=== PATIENT | female | born 1945 | race Caucasian/White ===

== ENCOUNTER 2019-07-01 08:35 | Inpatient (IN) | payer OTHER, SELFPAY ==
[2019-07-01] VITALS (39 sets, daily range): BP systolic 78–131; BP diastolic 27–80; PULSE 78–104; RESP 18–28; TEMP 35.2–35.8; O2SAT 88–100; BMI 32.8
[2019-07-01] MEDS: DEXTROSE 50 % IN WATER 25 GM/50 ML SYRINGE (08:55)
--- NOTE | 2019-07-01 09:04 | ED_ITS ---
HPI - General Adult General Chief complaint: Unresponsive Stated complaint: Weakness, hypoglycemia Time Seen by Provider: 07/01/19 09:04 Source: EMS Mode of arrival: EMS Limitations: altered mental status History of Present Illness HPI narrative: Patient comes emergency department via EMS raise for unresponsiveness this morning. Patient according to has been less and less active over the last 2 weeks. She has not been eating or drinking, and has not been getting out of bed. According to the medics, has been states that the patient has ?no medical problems.She has not been known to be ill with anything over the last couple weeks. No fevers. No cough. No vomiting or diarrhea. This morning, EMS was called for a ?lift assist? after the has been found the patient on the floor this morning. When they arrived, patient's blood sugar was found to be 46. Patient was not able to offer any information. Attempts to get an IV EN route were unsuccessful, and patient was given glucagon, which did not seem to make any difference in her mental status. She was also found to be hypotensive at 90/50. Related Data Home Medications Medication Instructions Recorded Confirmed Unobtainable 07/01/19 07/01/19 Allergies Allergy/AdvReac Type Severity Reaction Status Date / Time atorvastatin AdvReac Unknown Muscle Pain Verified 07/01/19 09:25 simvastatin AdvReac Unknown Muscle Verified 07/01/19 09:25 Pain, Nightmares Review of Systems Review of Systems ROS Unobtainable: Unobtainable due to mental condition [facility] Medical History (Updated 07/01/19 @ 16:27 by Saurav Campbell MD) Healthy adult (Acute) Presence of arterial stent (Acute) Surgical History No pertinent past surgical history (Acute) Family History (Updated 07/01/19 @ 15:51 by Delaney Antonio MD) Mother Dementia Social History (Updated 07/01/19 @ 16:40 by Saurav Campbell MD) Smoking Status: Current every day smoker alcohol intake: current Family History (Updated 07/01/19 @ 15:51 by Delaney Antonio MD) Mother Dementia Social History (Updated 07/01/19 @ 16:40 by Saurav Campbell MD) Smoking Status: Current every day smoker alcohol intake: current Exam Initial Vital Signs Initial Vital Signs: Vital Signs Temperature 96.0 F L 07/01/19 08:40 Pulse Rate 80 07/01/19 08:40 Respiratory Rate 28 H 07/01/19 08:40 Blood Pressure 84/43 L 07/01/19 08:40 Pulse Oximetry 99 07/01/19 08:40 Const General: No healthy appearing Nutritional Appearance: thin Other: Patient appears chronically ill and in baseline poor health. [facility] Head: normocephalic and atraumatic Ears: external ears normal and TM's normal bilaterally Nose: external nose normal and No nasal discharge Face and sinus: sinuses nontender, face symmetric, no sinus tenderness and No dry mucous membranes Mouth: oral mucosae normal and moist mucous membranes Teeth and gingiva: dentition normal Throat: tonsils normal and uvula midline Eyes General: appearance normal, both eyes and all related structures Eyelids: eyelids normal Conjunctivae: conjunctivae normal and other Sclera: sclerae normal (Icteric) Pupils: PERRL Neck Neck: normal visual inspection, trachea midline, No lymphadenopathy, No midline deformity and No JVD Lymphatic: No lymphedema Chest Chest: normal inspection of the chest Resp Effort & Inspection: normal respiratory effort, able to speak in complete sentences, no respiratory distress and no use of accessory muscles Auscultation: clear to auscultation bilaterally, no rales, no rhonchi and no wheezes Cardio Rate: regular rate Rhythm: regular rhythm Heart Sounds: no click, no gallops, no murmurs and no rubs Pulses: normal peripheral pulses GI Inspection: distended Palpation: soft, no hepatosplenomegaly, No guarding, No pulsatile mass and No tender Back/Spine/Pelvis Back: No CVA tenderness Cervical Spine: cervical ROM normal and No pain with cervical ROM Thoracic/Lumbar Spine: thoracic and lumbar spine normal to inspection Skin General: no rashes or lesions noted, No jaundice and No petechiae Neuro Other: Patient is moving all 4 extremities. She is not verbally responsive, and while her eyes are open, she does not focus or follow commands. Extrem General: full ROM, no clubbing, cyanosis or edema, no pedal edema and no calf tenderness Psych Appearance: well kempt Mental Status: mental status grossly normal Attitude: cooperative Thought Content: normal and suicidality Judgment: judgment good Procedures Central Line Placement Right SC: Patient Placed on Monitor/Pulse Ox: Yes MD Prep: mask, gown and gloves Central Line Prep: Chlorhexidine scrub and sterile drapes applied Local Anesthetic: lidocaine 1% Amount of anesthesia used (mL): 5 Ultrasound Used for Placement: No Central Line Lumen Inserted: triple Post Procedure: sutured in place, good blood return, all ports aspirated, flushed, capped and sterile dressing applied Post Procedure X-Ray: tip of catheter in good position and no pneumothorax seen Patient Tolerated Procedure: Well Course Course Course Narrative: Patient was seen by myself immediately upon arrival in the emergency department. She had extremely poor peripheral vasculature, so I did place a right triple-lumen central venous catheter. Simultaneously, PICC nurse was able to get a PICC line on the left side. Patient was given D50 1 amp IV, which did not change her mental status. A 2nd amp also failed to change the patient's mental status. This patient was started on IV fluid boluses with normal saline, and received several L while in the emergency department. Her labs were found to be widely deranged including an ammonia level of 238, white blood cell count 22.6, H/H 4.0/14.2, potassium 6.3, BUN 44, creatinine to 50, lactic acid level 22.4, and ABG showing pH 6.91. Patient was found to have gross blood per rectum, without passage of large amounts of blood or clots. Head CT and chest x-ray were unremarkable. Urinalysis was obtained and pending at this time. The patient was given 2 units of packed red blood cells, which were started in the emergency department. I spoke with Dr. Antonio after some delay, secondary to critical admitted patients, and she requested that surgery be on board to care for the patient if the patient was admitted here. After some further delay due to operating room cases, I was able to speak with Dr. Campbell, who conferred with Dr. Antonio. Ultimately, it was decided that the patient would be admitted to the hospital here on Dr. Antonio's service with cons ultation by Dr. Campbell. Family was informed of the grave condition of the patient was in. Her significant other had arrived sometime earlier, and I had discussed with him whether the patient had an advanced directive or any known wishes. The significant other stated she did not that he was aware of. Orders Ordered: Folic Acid (Folic Acid) 1 mg PO DAILY EKTA Ceftriaxone Sodium/Dextrose (Rocephin) 2 gm in 50 mls @ 100 mls/hr IV Q24H EKTA Last Admin: 07/01/19 17:10 Dose: 100 mls/hr Documented by: DEIDRE Sodium Bicarbonate 300 meq/ (Dextrose) 1,300 mls @ 150 mls/hr IV CONT EKTA Last Admin: 07/01/19 16:47 Dose: 250 mls/hr Documented by: DEIDRE Lactulose (Enulose) 20 gm LA NOW ONE Stop: 07/02/19 00:02 Lorazepam (Ativan) 0 mg IV CIWAPRN PRN; Protocol PRN Reason: Alcohol Withdrawal Morphine Sulfate (Morphine) 2 mg IV Q4HR PRN PRN Reason: Pain, Mild (1-3) Multivitamins (Tab-A-Amol) 1 tab PO DAILY [facility] Naloxone HCl (Narcan) 0.2 mg IV Q2MIN PRN PRN Reason: Opiate Reversal Nicotine (Nicoderm) 21 mg TOP DAILY [facility] Ondansetron HCl (Zofran) 4 mg IV Q6HR PRN PRN Reason: Nausea And Vomiting Pantoprazole Sodium (Protonix) 40 mg IV BID [facility] Thiamine HCl (Vitamin B-1) 100 mg PO DAILY EKTA Stop: 07/05/19 09:01 Discontinued Medications Dextrose (D50w) 25 gm IV NOW ONE Stop: 07/01/19 09:14 Last Admin: 07/01/19 09:35 Dose: 25 gm Documented by: RENEE Dextrose (D50w) 25 gm IV NOW ONE Stop: 07/01/19 16:26 Last Admin: 07/01/19 16:46 Dose: 25 gm Documented by: DEIDRE Sodium Chloride (Normal Saline 0.9%) 1,000 mls @ 1,000 mls/hr IV BOLUS ONE Stop: 07/01/19 10:12 Last Infusion: 07/01/19 10:31 Dose: 0 mls/hr Documented by: Admin: 07/01/19 09:26 Dose: 1,000 mls/hr Documented by: RENEE Sodium Chloride (Normal Saline 0.9%) 1,000 mls @ 1,000 mls/hr IV BOLUS ONE Stop: 07/01/19 09:59 Last Infusion: 07/01/19 10:30 Dose: 0 mls/hr Documented by: Admin: 07/01/19 10:16 Dose: 1,000 mls/hr Documented by: RENEE Sodium Chloride (Normal Saline 0.9%) 1,000 mls @ 1,000 mls/hr IV BOLUS ONE Stop: 07/01/19 12:04 Last Infusion: 07/01/19 13:45 Dose: 0 mls/hr Documented by: Admin: 07/01/19 11:40 Dose: 1,000 mls/hr Documented by: RENEE Calcium Gluconate 9.3 meq/ (Sodium Chloride) 70 mls @ 140 mls/hr IV NOW ONE Stop: 07/01/19 16:26 Last Admin: 07/01/19 16:46 Dose: 140 mls/hr Documented by: DEIDRE Insulin Human Regular (Humulin R) 10 unit SUBCUT NOW ONE Stop: 07/01/19 16:46 Last Admin: 07/01/19 16:47 Dose: 10 unit Documented by: DEIDRE Cosigned by: LEIGH Lactulose (Enulose) 20 gm LA NOW ONE Stop: 07/01/19 16:30 Last Admin: 07/01/19 17:01 Dose: 20 gm Documented by: DEIDRE Vital Signs Vital signs: Vital Signs - 8 hr 07/01/19 13:10 07/01/19 13:14 07/01/19 13:21 Temperature 96.2 F L 96.2 F L Pulse Rate 84 83 81 Respiratory Rate 20 20 22 Blood Pressure 116/29 L Blood Pressure [Right Arm] 122/80 111/43 L Pulse Oximetry 97 97 07/01/19 13:25 Temperature Pulse Rate 84 Respiratory Rate 21 Blood Pressure Blood Pressure [Right Arm] 106/46 L Pulse Oximetry 99 Medical Decision Making Medical Records Medical records reviewed: Yes I reviewed the patient's medical records. Lab Data Lab results reviewed: Yes I reviewed the patient's lab results. Result diagrams: 07/01/19 15:40 07/01/19 15:40 Labs: Lab Results 07/01/19 07/01/19 07/01/19 Range/Units 09:00 09:00 09:00 WBC 20.8 H (4.5-11.0) X10^3/uL RBC 1.15 L (4.0-5.2) X10^6/uL Hgb 4.0 L* (12.0-16.0) g/dL Hct 14.2 L* (36-46) % MCV 123.6 H (80-100) fL MCH 34.5 H (26-34) PG MCHC 27.9 L (30-36) % RDW 20.0 H (11.6-14.8) % Plt Count 290 (150-400) X10^3/uL Neut % (Auto) Not Reportable Lymph % (Auto) Not Reportable [place] % (Auto) Not Reportable Eos % (Auto) Not Reportable Baso % (Auto) Not Reportable Lymph # (Auto) Not Reportable [place] # (Auto) Not Reportable Baso # (Auto) Not Reportable Total Counted 100 Seg Neutrophils % 66.0 (38-70) % Band Neutrophils % 6.0 (3-7) % Lymphocytes % (Manual) 18.0 L (25-45) % Atypical Lymphs % 1.0 H ( - 0) % Monocytes % (Manual) 5.0 (2-11) % Metamyelocytes % 2.0 H (-0) % Myelocytes % 2.0 H (-0) % Neutrophils # (Manual) 23122 H (6608-2975) /uL Platelet Estimate Adequate on smear RBC Morphology See below Polychromasia 2+ H Anisocytosis 2+ H Macrocytosis 3+ H Tear Drop Cells 1+ H Ovalocytes 1+ H Hernandez Cells 3+ H PT 28.6 H (10.1-12.7) SECONDS INR 2.4 H (0.9-1.3) ABG pH (7.35-7.45) ABG pCO2 (35-45) mmHg ABG pO2 (80-100) mmHg ABG HCO3 (22-26) mmol/L ABG Total CO2 (21-31) mmol/L ABG O2 Saturation (95-100) % ABG Base Excess (-2-2) mmol/L FiO2 Sodium 143 (137-145) mmol/L Potassium 5.8 H (3.4-5.1) mmol/L Chloride 107 (98-107) mmol/L Carbon Dioxide 7 L* (22-32) mmol/L BUN 46 H (7-17) mg/dL Creatinine 2.80 H (0.52-1.04) mg/dL Estimated GFR 16.6 L (>60) mL/min BUN/Creatinine Ratio 16.4 (6-22) Glucose 35 L* (80-110) mg/dL Lactate (0.7-2.1) mmol/L Calcium 8.8 (8.4-10.2) mg/dL Total Bilirubin 2.9 H (0.2-1.3) mg/dL AST 173 H (14-36) IU/L ALT 35 (9-52) IU/L Alkaline Phosphatase 41 (38-126) U/L Ammonia (9-30) umol/L Total Creatine Kinase 333 H (30-135) U/L CK-MB (CK-2) 5.98 H (<2.37) ng/mL CK-MB (CK-2) Rel Index 1.8 (1.5-5.0) % Troponin I 0.017 (0.01-0.034) ng/mL Total Protein 5.4 L (6.3-8.2) g/dL Albumin 2.4 L (3.5-5.0) g/dL Globulin 3.0 (1.7-4.1) g/dL Albumin/Globulin Ratio 0.8 L (1.0-2.8) Lipase 92 (23-300) U/L Urine Color Urine Appearance Urine pH (4.5-8.0) Ur Specific [place] (1.000-1.035) Urine Protein (Negative) Urine Glucose (UA) (Negative) g/dL Urine Ketones (NEGATIVE) Urine Occult Blood (Negative) Urine Nitrate (Negative) Urine Bilirubin (NEGATIVE) Urine Urobilinogen (0.2) E.U./dL Ur Leukocyte Esterase (NEGATIVE) Urine RBC (0-5/HPF) Urine WBC (0-5/HPF) Ur Squamous Epith Cells (0-5/HPF) Urine Bacteria (None) Ur Culture Indicated? Urine Opiates Screen (Negative) Ur Oxycodone Screen (Negative) Urine Methadone Screen (Negative) Ur Barbiturates Screen (Negative) U Tricyclic Antidepress (Negative) Ur Phencyclidine Scrn (Negative) Ur Amphetamines Screen (Negative) U Methamphetamines Scrn (Negative) Ur MDMA Scrn (Ecstasy) (Negative) U Benzodiazepines Scrn (Negative) Urine Cocaine Screen (Negative) U Marijuana (THC) Screen (Negative) Ethyl Alcohol ( - 10) mg/dL Blood Type Antibody Screen Crossmatch 07/01/19 07/01/19 07/01/19 Range/Units 09:00 09:00 09:00 WBC (4.5-11.0) X10^3/uL RBC (4.0-5.2) X10^6/uL Hgb (12.0-16.0) g/dL Hct (36-46) % MCV (80-100) fL MCH (26-34) PG MCHC (30-36) % RDW (11.6-14.8) % Plt Count (150-400) X10^3/uL Neut % (Auto) Lymph % (Auto) [place] % (Auto) Eos % (Auto) Baso % (Auto) Lymph # (Auto) [place] # (Auto) Baso # (Auto) Total Counted Seg Neutrophils % (38-70) % Band Neutrophils % (3-7) % Lymphocytes % (Manual) (25-45) % Atypical Lymphs % ( - 0) % Monocytes % (Manual) (2-11) % Metamyelocytes % (-0) % Myelocytes % (-0) % Neutrophils # (Manual) (7603-3548) /uL Platelet Estimate RBC Morphology Polychromasia Anisocytosis Macrocytosis Tear Drop Cells Ovalocytes Hernandez Cells PT (10.1-12.7) SECONDS INR (0.9-1.3) ABG pH (7.35-7.45) ABG pCO2 (35-45) mmHg ABG pO2 (80-100) mmHg ABG HCO3 (22-26) mmol/L ABG Total CO2 (21-31) mmol/L ABG O2 Saturation (95-100) % ABG Base Excess (-2-2) mmol/L FiO2 Sodium (137-145) mmol/L Potassium (3.4-5.1) mmol/L Chloride (98-107) mmol/L Carbon Dioxide (22-32) mmol/L BUN (7-17) mg/dL Creatinine (0.52-1.04) mg/dL Estimated GFR (>60) mL/min BUN/Creatinine Ratio (6-22) Glucose (80-110) mg/dL Lactate 22.4 H* (0.7-2.1) mmol/L Calcium (8.4-10.2) mg/dL Total Bilirubin (0.2-1.3) mg/dL AST (14-36) IU/L ALT (9-52) IU/L Alkaline Phosphatase (38-126) U/L Ammonia 238.0 H (9-30) umol/L Total Creatine Kinase (30-135) U/L CK-MB (CK-2) (<2.37) ng/mL CK-MB (CK-2) Rel Index (1.5-5.0) % Troponin I (0.01-0.034) ng/mL Total Protein (6.3-8.2) g/dL Albumin (3.5-5.0) g/dL Globulin (1.7-4.1) g/dL Albumin/Globulin Ratio (1.0-2.8) Lipase (23-300) U/L Urine Color Urine Appearance Urine pH (4.5-8.0) Ur Specific [place] (1.000-1.035) Urine Protein (Negative) Urine Glucose (UA) (Negative) g/dL Urine Ketones (NEGATIVE) Urine Occult Blood (Negative) Urine Nitrate (Negative) Urine Bilirubin (NEGATIVE) Urine Urobilinogen (0.2) E.U./dL Ur Leukocyte Esterase (NEGATIVE) Urine RBC (0-5/HPF) Urine WBC (0-5/HPF) Ur Squamous Epith Cells (0-5/HPF) Urine Bacteria (None) Ur Culture Indicated? Urine Opiates Screen (Negative) Ur Oxycodone Screen (Negative) Urine Methadone Screen (Negative) Ur Barbiturates Screen (Negative) U Tricyclic Antidepress (Negative) Ur Phencyclidine Scrn (Negative) Ur Amphetamines Screen (Negative) U Methamphetamines Scrn (Negative) Ur MDMA Scrn (Ecstasy) (Negative) U Benzodiazepines Scrn (Negative) Urine Cocaine Screen (Negative) U Marijuana (THC) Screen (Negative) Ethyl Alcohol ( - 10) mg/dL Blood Type A Positive Antibody Screen Negative Crossmatch See Detail 07/01/19 07/01/19 07/01/19 Range/Units 09:00 09:10 09:10 WBC (4.5-11.0) X10^3/uL RBC (4.0-5.2) X10^6/uL Hgb (12.0-16.0) g/dL Hct (36-46) % MCV (80-100) fL MCH (26-34) PG MCHC (30-36) % RDW (11.6-14.8) % Plt Count (150-400) X10^3/uL Neut % (Auto) Lymph % (Auto) [place] % (Auto) Eos % (Auto) Baso % (Auto) Lymph # (Auto) [place] # (Auto) Baso # (Auto) Total Counted Seg Neutrophils % (38-70) % Band Neutrophils % (3-7) % Lymphocytes % (Manual) (25-45) % Atypical Lymphs % ( - 0) % Monocytes % (Manual) (2-11) % Metamyelocytes % (-0) % Myelocytes % (-0) % Neutrophils # (Manual) (0528-3881) /uL Platelet Estimate RBC Morphology Polychromasia Anisocytosis Macrocytosis Tear Drop Cells Ovalocytes Perry Cells PT (10.1-12.7) SECONDS INR (0.9-1.3) ABG pH (7.35-7.45) ABG pCO2 (35-45) mmHg ABG pO2 (80-100) mmHg ABG HCO3 (22-26) mmol/L ABG Total CO2 (21-31) mmol/L ABG O2 Saturation (95-100) % ABG Base Excess (-2-2) mmol/L FiO2 Sodium (137-145) mmol/L Potassium (3.4-5.1) mmol/L Chloride (98-107) mmol/L Carbon Dioxide (22-32) mmol/L BUN (7-17) mg/dL Creatinine (0.52-1.04) mg/dL Estimated GFR (>60) mL/min BUN/Creatinine Ratio (6-22) Glucose (80-110) mg/dL Lactate (0.7-2.1) mmol/L Calcium (8.4-10.2) mg/dL Total Bilirubin (0.2-1.3) mg/dL AST (14-36) IU/L ALT (9-52) IU/L Alkaline Phosphatase (38-126) U/L Ammonia (9-30) umol/L Total Creatine Kinase (30-135) U/L CK-MB (CK-2) (<2.37) ng/mL CK-MB (CK-2) Rel Index (1.5-5.0) % Troponin I (0.01-0.034) ng/mL Total Protein (6.3-8.2) g/dL Albumin (3.5-5.0) g/dL Globulin (1.7-4.1) g/dL Albumin/Globulin Ratio (1.0-2.8) Lipase (23-300) U/L Urine Color Dark yellow Urine Appearance Cloudy Urine pH 5.0 (4.5-8.0) Ur Specific [place] 1.020 (1.000-1.035) Urine Protein Negative (Negative) Urine Glucose (UA) Negative (Negative) g/dL Urine Ketones Negative (NEGATIVE) Urine Occult Blood 3+ H (Negative) Urine Nitrate Negative (Negative) Urine Bilirubin Negative (NEGATIVE) Urine Urobilinogen 0.2 (0.2) E.U./dL Ur Leukocyte Esterase 1+ H (NEGATIVE) Urine RBC 5-10/hpf H (0-5/HPF) Urine WBC 5-10/hpf H (0-5/HPF) Ur Squamous Epith Cells 0-1 /hpf (0-5/HPF) Urine Bacteria Moderate (10-30) H (None) Ur Culture Indicated? Specimen cultured Urine Opiates Screen Negative (Negative) Ur Oxycodone Screen Negative (Negative) Urine Methadone Screen Negative (Negative) Ur Barbiturates Screen Negative (Negative) U Tricyclic Antidepress Negative (Negative) Ur Phencyclidine Scrn Negative (Negative) Ur Amphetamines Screen Negative (Negative) U Methamphetamines Scrn Negative (Negative) Ur MDMA Scrn (Ecstasy) Negative (Negative) U Benzodiazepines Scrn Negative (Negative) Urine Cocaine Screen Negative (Negative) U Marijuana (THC) Screen Negative (Negative) Ethyl Alcohol < 10 ( - 10) mg/dL Blood Type Antibody Screen Crossmatch 07/01/19 07/01/19 Range/Units 10:44 11:32 WBC (4.5-11.0) X10^3/uL RBC (4.0-5.2) X10^6/uL Hgb (12.0-16.0) g/dL Hct (36-46) % MCV (80-100) fL MCH (26-34) PG MCHC (30-36) % RDW (11.6-14.8) % Plt Count (150-400) X10^3/uL Neut % (Auto) Lymph % (Auto) [place] % (Auto) Eos % (Auto) Baso % (Auto) Lymph # (Auto) [place] # (Auto) Baso # (Auto) Total Counted Seg Neutrophils % (38-70) % Band Neutrophils % (3-7) % Lymphocytes % (Manual) (25-45) % Atypical Lymphs % ( - 0) % Monocytes % (Manual) (2-11) % Metamyelocytes % (-0) % Myelocytes % (-0) % Neutrophils # (Manual) (8258-7632) /uL Platelet Estimate RBC Morphology Polychromasia Anisocytosis Macrocytosis Tear Drop Cells Ovalocytes Perry Cells PT (10.1-12.7) SECONDS INR (0.9-1.3) ABG pH 6.91 L* (7.35-7.45) ABG pCO2 19.4 L* (35-45) mmHg ABG pO2 100 (80-100) mmHg ABG HCO3 4 L (22-26) mmol/L ABG Total CO2 < 5 L (21-31) mmol/L ABG O2 Saturation 91 L (95-100) % ABG Base Excess -29.0 L (-2-2) mmol/L FiO2 0.21 Sodium (137-145) mmol/L Potassium (3.4-5.1) mmol/L Chloride (98-107) mmol/L Carbon Dioxide (22-32) mmol/L BUN (7-17) mg/dL Creatinine (0.52-1.04) mg/dL Estimated GFR (>60) mL/min BUN/Creatinine Ratio (6-22) Glucose (80-110) mg/dL Lactate 22.4 H* (0.7-2.1) mmol/L Calcium (8.4-10.2) mg/dL Total Bilirubin (0.2-1.3) mg/dL AST (14-36) IU/L ALT (9-52) IU/L Alkaline Phosphatase (38-126) U/L Ammonia (9-30) umol/L Total Creatine Kinase (30-135) U/L CK-MB (CK-2) (<2.37) ng/mL CK-MB (CK-2) Rel Index (1.5-5.0) % Troponin I (0.01-0.034) ng/mL Total Protein (6.3-8.2) g/dL Albumin (3.5-5.0) g/dL Globulin (1.7-4.1) g/dL Albumin/Globulin Ratio (1.0-2.8) Lipase (23-300) U/L Urine Color Urine Appearance Urine pH (4.5-8.0) Ur Specific [place] (1.000-1.035) Urine Protein (Negative) Urine Glucose (UA) (Negative) g/dL Urine Ketones (NEGATIVE) Urine Occult Blood (Negative) Urine Nitrate (Negative) Urine Bilirubin (NEGATIVE) Urine Urobilinogen (0.2) E.U./dL Ur Leukocyte Esterase (NEGATIVE) Urine RBC (0-5/HPF) Urine WBC (0-5/HPF) Ur Squamous Epith Cells (0-5/HPF) Urine Bacteria (None) Ur Culture Indicated? Urine Opiates Screen (Negative) Ur Oxycodone Screen (Negative) Urine Methadone Screen (Negative) Ur Barbiturates Screen (Negative) U Tricyclic Antidepress (Negative) Ur Phencyclidine Scrn (Negative) Ur Amphetamines Screen (Negative) U Methamphetamines Scrn (Negative) Ur MDMA Scrn (Ecstasy) (Negative) U Benzodiazepines Scrn (Negative) Urine Cocaine Screen (Negative) U Marijuana (THC) Screen (Negative) Ethyl Alcohol ( - 10) mg/dL Blood Type Antibody Screen Crossmatch Point of Care Testing Stool Occult Blood Positive Glucose POC 296 Point of care testing: Point of Care Testing Stool Occult Blood Positive Glucose POC [address] scan - head: Radiologist's impression: PROCEDURE: CT HEAD/BRAIN WO CON INDICATIONS: aloc TECHNIQUE: Noncontrast 4.5 mm thick angled axial sections acquired from the foramen magnum to the vertex, with coronal and sagittal reformats. For radiation dose reduction, the following was used: automated exposure control, adjustment of mA and/or kV according to patient size. COMPARISON: None. FINDINGS: Image quality: Excellent. CSF spaces: Basal cisterns are patent. No extra-axial fluid collections. The ventricles are symmetric in size and shape. Brain: No intracranial bleeds or masses. There is cerebral volume loss for age, with resultant ventricular and sulcal prominence. There are periventricular and deep white matter chronic small vessel ischemic changes. There is intracranial internal carotid artery atherosclerosis. Skull and face: Calvarium and visualized facial bones appear intact, without suspicious lesions. Sinuses: Visualized sinuses and mastoids are clear. IMPRESSION: No acute intracranial hemorrhage is seen. No significant intracranial abnormality can be seen for age. Dictated by: Ervin Velasco M.D. on 07/01/2019 at 10:37 Approved by: Ervin Velasco M.D. on 07/01/2019 at 10:38 Chest x-ray: Radiologist's impression: PROCEDURE: XR CHEST 1V INDICATIONS: central line TECHNIQUE: One view of the chest was acquired. COMPARISON: None. FINDINGS: Surgical changes and devices: A right-sided central line is seen, the tip overlying the mid to inferior aspect of the superior cava, 2.5 cm above the cavoatrial junction. Lungs and pleura: An incomplete inspiratory result is noted, causing a crowded appearance to the lung markings. On this semiupright portable chest examination, no large pneumothorax or large pleural effusions are seen. No focal infiltrates are seen. Mediastinum: Mediastinal contours appear normal. Heart size is normal. Atherosclerotic calcification of the aortic arch is noted. Bones and chest wall: Age-appropriate bony degenerative changes are seen. No suspicious bony lesions. Overlying soft tissues appear unremarkable. IMPRESSION: The tip of the right-sided central line overlies the mid to inferior aspect of the superior vena cava. Limited evaluation of the lungs, with semiupright positioning and an incomplete inspiratory result. Dictated by: Ervin Velasco M.D. on 07/01/2019 at 10:01 Approved by: Ervin Velasco M.D. on 07/01/2019 at 10:02 ECG Data Attestation: I personally reviewed and interpreted this ECG as follows: (See below) Interpretation: Twelve lead EKG performed July 01, 2019 at 9:33 a.m., as follows: Regular ventricular rhythm with a rate of 85 beats per minute LA interval to O2 millisecond QRS duration 163 milliseconds QTC interval 438 millisecond No ectopy Interpretation: Normal sinus rhythm; right bundle-branch block; ST depression; abnormal EKG as interpreted by ED MD. Critical Care Time Critical Care Time Critical Care Time: Yes Total Critical Care Time: 100 Attestation: Critical care time was necessary, due to high probability of imminent decline and , secondary to severe hepatic encephalopathy, critical anemia with GI bleed, hypoglycemia, severe lactic acidosis and hypotension. Critical care time is exclusive of separately billable procedures. Critical care time included: Interviewing family and examining the patient, ordering and reviewing laboratory studies, ordering and reviewing imaging studies, evaluating cardiac output, evaluating oxygen saturation, discussion with consultants, discussion with family, re-examining the patient, and documentation. Discharge Plan Departure Patient Disposition: Admitted As Inpatient Clinical Impression: Alcoholic liver failure, Acute hepatic encephalopathy, Severe anemia, Acute GI bleeding, Hypoglycemia, Acute dehydration, Acidosis, lactic, Coagulopathy Discharge Date/Time: 07/01/19 13:55 Admit Date/Time: 07/01/19 13:37 Admit Provider: Delaney Antonio
[2019-07-01 09:24] LABS: INR 2.4 (0.9-1.3); Prothrombin Time 28.6 SECONDS (10.1-12.7)
[2019-07-01] MEDS: SODIUM CHLORIDE 0.9% 1,000 ML 1000 ML IV ×3 (09:26→11:40)
[2019-07-01 09:27] LABS: Alanine Aminotransferase 35 IU/L (9-52); Albumin 2.4 g/dL (3.5-5.0); Albumin Globulin Ratio 0.8 (1.0-2.8); Alkaline Phosphatase 41 U/L (38-126); Aspartate Aminotransferase 173 IU/L (14-36); BUN Creatinine Ratio 16.4 (6-22); Bilirubin Total 2.9 mg/dL (0.2-1.3); Blood Urea Nitrogen 46 mg/dL (7-17); Calcium 8.8 mg/dL (8.4-10.2); Chloride 107 mmol/L (98-107); Creatine Kinase 333 U/L (30-135); Estimated Glomerular Filt Rate 16.6 mL/min (>60); HEMOLYSIS < 15 (0-50); Lipase 92 U/L (23-300); Sodium 143 mmol/L (137-145); Total Protein 5.4 g/dL (6.3-8.2)
[2019-07-01 09:28] LABS: Mean Corpuscular HGB Conc 27.9 % (30-36); Mean Corpuscular Hemoglobin 34.5 PG (26-34); Mean Corpuscular Volume 123.6 fL (80-100); Platelet Count 290 X10^3/uL (150-400); Red Blood Cell Count 1.15 X10^6/uL (4.0-5.2); White Blood Cell Count 20.8 X10^3/uL (4.5-11.0)
[2019-07-01 09:30] LABS: Add Manual Diff / Slide Review YES
[2019-07-01 09:31] LABS: Hematocrit 14.2 % (36-46)
[2019-07-01] MEDS: DEXTROSE 50 % IN WATER 25 GM/50 ML SYRINGE IV ×2 (09:35→16:46)
--- NOTE | 2019-07-01 09:35 | DI.RAD.S_ITS ---
PROCEDURE: XR CHEST 1V INDICATIONS: central line TECHNIQUE: One view of the chest was acquired. COMPARISON: None. FINDINGS: Surgical changes and devices: A right-sided central line is seen, the tip overlying the mid to inferior aspect of the superior cava, 2.5 cm above the cavoatrial junction. Lungs and pleura: An incomplete inspiratory result is noted, causing a crowded appearance to the lung markings. On this semiupright portable chest examination, no large pneumothorax or large pleural effusions are seen. No focal infiltrates are seen. Mediastinum: Mediastinal contours appear normal. Heart size is normal. Atherosclerotic calcification of the aortic arch is noted. Bones and chest wall: Age-appropriate bony degenerative changes are seen. No suspicious bony lesions. Overlying soft tissues appear unremarkable. IMPRESSION: The tip of the right-sided central line overlies the mid to inferior aspect of the superior vena cava. Limited evaluation of the lungs, with semiupright positioning and an incomplete inspiratory result. Dictated by: Ervin Velasco M.D. on 07/01/2019 at 10:01 Approved by: Ervin Velasco M.D. on 07/01/2019 at 10:02
[2019-07-01 09:39] LABS: Troponin I 0.017 ng/mL (0.01-0.034)
[2019-07-01 09:45] LABS: Potassium 5.8 mmol/L (3.4-5.1)
[2019-07-01 09:48] LABS: Carbon Dioxide 7 mmol/L (22-32)
[2019-07-01 09:56] LABS: Neutrophils Absolute Manual 14976 /uL (3000-5900); Total Cells Counted 100
[2019-07-01 09:58] LABS: Anisocytosis 2+; Macrocytosis 3+; Polychromasia 2+
[2019-07-01 10:00] LABS: Burr Cells 3+; Glucose 35 mg/dL (80-110); Ovalocytes 1+; Platelet Estimate Adequate on smear; Tear Drop Cells 1+
[2019-07-01 10:02] LABS: Lactate (Lactic Acid) 22.4 mmol/L (0.7-2.1)
[2019-07-01 10:19] LABS: CKMB % Relative Index 1.8 % (1.5-5.0); Creatine Kinase MB 5.98 ng/mL (<2.37)
--- NOTE | 2019-07-01 10:19 | DI.CT.S_ITS ---
PROCEDURE: CT HEAD/BRAIN WO CON INDICATIONS: aloc TECHNIQUE: Noncontrast 4.5 mm thick angled axial sections acquired from the foramen magnum to the vertex, with coronal and sagittal reformats. For radiation dose reduction, the following was used: automated exposure control, adjustment of mA and/or kV according to patient size. COMPARISON: None. FINDINGS: Image quality: Excellent. CSF spaces: Basal cisterns are patent. No extra-axial fluid collections. The ventricles are symmetric in size and shape. Brain: No intracranial bleeds or masses. There is cerebral volume loss for age, with resultant ventricular and sulcal prominence. There are periventricular and deep white matter chronic small vessel ischemic changes. There is intracranial internal carotid artery atherosclerosis. Skull and face: Calvarium and visualized facial bones appear intact, without suspicious lesions. Sinuses: Visualized sinuses and mastoids are clear. IMPRESSION: No acute intracranial hemorrhage is seen. No significant intracranial abnormality can be seen for age. Dictated by: Ervin Velasco M.D. on 07/01/2019 at 10:37 Approved by: Ervin Velasco M.D. on 07/01/2019 at 10:38
--- NOTE | 2019-07-01 10:31 | PC.NURSE ---
Miguel is the boyfriend , , reports bloody nose last night and at noon yesterday. se was communicated with him yesterday. pt was in bed at 2130, Miguel found her on the floor at 3:30 am , refused to get up. he noticed this am bm on floor by toilet- bloody. he called medics this am
[2019-07-01 10:40] LABS: Ethanol (ETOH) < 10 mg/dL
[2019-07-01 11:00] LABS: Bilirubin Urine UA NEGATIVE (NEGATIVE); Glucose Urine UA NEGATIVE (Negative); Ketones Urine UA NEGATIVE (NEGATIVE); Leukocyte Esterase Urine UA 1+ (NEGATIVE); Nitrite Urine UA NEGATIVE (Negative); Occult Blood Urine UA 3+ (Negative); Protein Urine UA NEGATIVE (Negative); Urobilinogen Urine UA 0.2 E.U./dL (0.2)
[2019-07-01 11:04] LABS: Urine Amphetamines Negative (Negative); Urine Barbiturates Negative (Negative); Urine Benzodiazepines Negative (Negative); Urine Cocaine Negative (Negative); Urine MDMA Negative (Negative); Urine Methadone Negative (Negative); Urine Methamphetamines Negative (Negative); Urine Morphine/Opi cutoff 2000 Negative (Negative); Urine Oxycodone Negative (Negative); Urine Phencyclidine Negative (Negative); Urine Tetrahydrocannabinol Negative (Negative); Urine Tricyclic Antidepressant Negative (Negative)
[2019-07-01 11:05] LABS: Appearance Urine UA Cloudy; Color Urine UA Dark Yellow
[2019-07-01 11:07] LABS: pH ABG 6.91 (7.35-7.45)
--- NOTE | 2019-07-01 11:07 | PC.NURSE ---
When patient arrived she was incontinent of dark bloody stool. heme positive by hemocult. wiped brp on wipes when cleaned up. DR. Odonnell aware. mouth foul smelling order. mouth care done.
[2019-07-01 11:08] LABS: Bacteria Urine Moderate (10-30); Culture Indicated Urine Specimen Cultured; RBC Urine 5-10/HPF (0-5/HPF); Squamous Epithelial Cell Urine 0-1 /HPF (0-5/HPF); WBC Urine 5-10/HPF (0-5/HPF)
[2019-07-01 11:08] LABS: HCO3 ABG 4 mmol/L (22-26); PCO2 ABG 19.4 mmHg (35-45); PO2 ABG 100 mmHg (80-100); TCO2 ABG < 5 mmol/L (21-31)
[2019-07-01 11:09] LABS: Fractionated Inspired Oxygen 0.21; Oxygen Saturation ABG 91 % (95-100)
[2019-07-01 11:17] LABS: Reflexed Lactate in 2 Hours Y
--- NOTE | 2019-07-01 11:46 | PC.NURSE ---
Miguel reports her last drink of 5 glasses of wine was one week ago.
[2019-07-01 11:59] LABS: Lactate 2HR (Lactic Acid Rflx) 22.4 mmol/L (0.7-2.1)
--- NOTE | 2019-07-01 12:15 | PM.CHAP ---
Prayer & encouragement with family in ER. Partner, Miguel, son, Joselo, and grandson present
--- NOTE | 2019-07-01 15:15 | PC.NURSE ---
PT ARRIVAL TO ICU ROOM 105- PT REMAINS NON VERBAL WITH FAMILY AT BEDSIDE- AWAITNG ORDERS - SHE REMAINS NON VERBAL BUT ATTEMPTING TO PULL OUT O2 AND IV LINES- KUSSMAUL BREATHING NOTED MD IN ROOM AT PRESENT
--- NOTE | 2019-07-01 15:48 | PM.HP.1 ---
History of Present Illness History of Present Illness Date Patient Seen: 07/01/19 Chief complaint: Weakness, hypoglycemia Narrative: Patient is a 73-year-old female with a longstanding history of alcoholism who was brought in by medics as she was found down. According to the history obtained by the ER provider the patient has been drinking daily. She over the past week has essentially been in the bed and unable to get up and ambulate. She was found by her significant other down on the ground today. 911 was: And the patient was found to be hypoglycemic with a blood sugar of 46. She was given glucagon but no improvement. Upon arrival to the emergency room the patient was confused, found to be anemic with hemoglobin of 4.9 and hematocrit of 14, had evidence of liver failure with elevated LFTs, acute renal failure with an elevated creatinine of 2.8, elevated protime 2.5 bilirubin of 2.9, chest x-ray which was negative, a head CT which was negative. Patient is currently unresponsive. Her eyes are open but she does not verbalize any words. Patient is found to be markedly markedly acidotic. It her pH is 6.91, pCO2 of 19.4, CO2 of 7. Patient has a elevated lactate of 22.4. Patient's ammonia level was over 200. She is admitted to the hospital critically ill with a acute GI bleed, acute liver failure, acute renal failure, severe metabolic acidosis. Her sons are at the bedside. They do not know her code status. Patient will be full code at this time. Patient History Medical History Healthy adult (Acute) Surgical History No pertinent past surgical history (Acute) Social History Smoking Status: Unknown if ever smoked alcohol intake: current Family & Social History Family History (Updated 07/01/19 @ 15:51 by Delaney Antonio MD) Mother Dementia Safety & Behavioral: Feels Safe in Current Unwilling to Answer Environment Been Physically Hurt or Unwilling to Answer Threatened By a Person Suicidal Ideation Description None Suicide Plan Description No Plan Tobacco & Substance use: Smoking Status Unknown if ever smoked alcohol intake current alcohol intake frequency 3 or more drinks per day Meds Home Medications and Allergies Home Medications Medication Instructions Recorded Confirmed Type Unobtainable 07/01/19 07/01/19 History Allergies Allergy/AdvReac Type Severity Reaction Status Date / Time atorvastatin AdvReac Unknown Muscle Pain Verified 07/01/19 09:25 simvastatin AdvReac Unknown Muscle Verified 07/01/19 09:25 Pain, Nightmares Review of Systems Review of Systems ROS Unobtainable: unobtainable due to mental status Exam Vital Signs (past 8 hours): - 07/01/19 08:40 07/01/19 09:00 07/01/19 09:10 Temperature 96.0 F L 96.1 F L Pulse Rate 80 86 88 Respiratory Rate 28 H 21 22 Blood Pressure 84/43 L Blood Pressure [Right Arm] 109/40 L 88/35 L Pulse Oximetry 99 98 100 07/01/19 09:15 07/01/19 09:20 07/01/19 09:25 Temperature Pulse Rate 84 91 H 87 Respiratory Rate 20 21 18 Blood Pressure Blood Pressure [Right Arm] 90/42 L 89/73 L 82/49 L Pulse Oximetry 100 99 100 07/01/19 09:35 07/01/19 09:40 07/01/19 10:01 Temperature Pulse Rate 87 84 85 Respiratory Rate 22 21 22 Blood Pressure Blood Pressure [Right Arm] 78/48 L 105/35 L 104/36 L Pulse Oximetry 99 99 98 07/01/19 10:15 07/01/19 10:30 07/01/19 10:35 Temperature Pulse Rate 86 83 82 Respiratory Rate 22 21 21 Blood Pressure Blood Pressure [Right Arm] 100/36 L 109/34 L 99/36 L Pulse Oximetry 99 93 94 07/01/19 10:40 07/01/19 10:48 07/01/19 11:00 Temperature 95.3 F L Pulse Rate 81 82 80 Respiratory Rate 20 20 18 Blood Pressure 93/36 L Blood Pressure [Right Arm] 93/36 L 88/31 L Pulse Oximetry 95 91 07/01/19 11:01 07/01/19 11:07 07/01/19 11:45 Temperature 96.1 F L Pulse Rate 80 78 82 Respiratory Rate 22 22 22 Blood Pressure 98/36 L Blood Pressure [Right Arm] 88/31 L 102/35 L Pulse Oximetry 93 100 07/01/19 12:04 07/01/19 12:05 07/01/19 12:15 Temperature 96.2 F L 96.0 F L Pulse Rate 84 82 83 Respiratory Rate 20 22 21 Blood Pressure 99/32 L 98/30 L Blood Pressure [Right Arm] 103/35 L Pulse Oximetry 99 07/01/19 12:25 07/01/19 12:30 07/01/19 12:47 Temperature 96.0 F L Pulse Rate 82 83 84 Respiratory Rate 20 20 21 Blood Pressure 102/36 L Blood Pressure [Right Arm] 106/36 L 104/53 L Pulse Oximetry 99 98 07/01/19 13:10 07/01/19 13:14 07/01/19 13:21 Temperature 96.2 F L 96.2 F L Pulse Rate 84 83 81 Respiratory Rate 20 20 22 Blood Pressure 116/29 L Blood Pressure [Right Arm] 122/80 111/43 L Pulse Oximetry 97 97 07/01/19 13:25 07/01/19 13:40 07/01/19 13:55 Temperature 96.2 F L Pulse Rate 84 83 82 Respiratory Rate 21 21 24 Blood Pressure 110/47 L Blood Pressure [Right Arm] 106/46 L 110/47 L Pulse Oximetry 99 100 100 Oxygen Delivery Method Nasal Cannula Oxygen Flow Rate 2 Narrative Exam Narrative: Ill-appearing female confused and minimally responsive with Kussmaul breathing HEENT: Normocephalic atraumatic, sclera with bilateral icteric oropharynx reveals dry mucous membranes neck is supple Lungs: Decreased breath sounds bilaterally Cardiac exam: Regular rate and rhythm normal S1-S2 with a 2/6 systolic ejection murmur Abdomen: Obese, soft, nontender, no evidence of hepatosplenomegaly, mild fluid wave Extremities: No edema, chronic scarring on the left lower extremity from prior varicose veins strep Chest wall spider angiomata noted Neuro exam: Patient is confused unresponsive and is unable to follow commands she is able to withdraw also extremity Skin exam: Spider angiomata on the chest wall, chronic venous stasis changes in the right lower extremity Objective Labs Result Diagrams: 07/01/19 09:00 07/01/19 09:00 Labs: Laboratory Results - last 24 hr 07/01/19 07/01/19 07/01/19 09:00 09:00 09:00 WBC 20.8 H RBC 1.15 L Hgb 4.0 L* Hct 14.2 L* MCV 123.6 H MCH 34.5 H MCHC 27.9 L RDW 20.0 H Plt Count 290 Neut % (Auto) Not Reportable Lymph % (Auto) Not Reportable [place] % (Auto) Not Reportable Eos % (Auto) Not Reportable Baso % (Auto) Not Reportable Lymph # (Auto) Not Reportable [place] # (Auto) Not Reportable Baso # (Auto) Not Reportable Total Counted 100 Seg Neutrophils % 66.0 Band Neutrophils % 6.0 Lymphocytes % (Manual) 18.0 L Atypical Lymphs % 1.0 H Monocytes % (Manual) 5.0 Metamyelocytes % 2.0 H Myelocytes % 2.0 H Neutrophils # (Manual) 15809 H Platelet Estimate Adequate on smear RBC Morphology See below Polychromasia 2+ H Anisocytosis 2+ H Macrocytosis 3+ H Tear Drop Cells 1+ H Ovalocytes 1+ H [place] Cells 3+ H PT 28.6 H INR 2.4 H ABG pH ABG pCO2 ABG pO2 ABG HCO3 ABG Total CO2 ABG O2 Saturation ABG Base Excess FiO2 Sodium 143 Potassium 5.8 H Chloride 107 Carbon Dioxide 7 L* BUN 46 H Creatinine 2.80 H Estimated GFR 16.6 L BUN/Creatinine Ratio 16.4 Glucose 35 L* Lactate Calcium 8.8 Total Bilirubin 2.9 H AST 173 H ALT 35 Alkaline Phosphatase 41 Ammonia Total Creatine Kinase 333 H CK-MB (CK-2) 5.98 H CK-MB (CK-2) Rel Index 1.8 Troponin I 0.017 Total Protein 5.4 L Albumin 2.4 L Globulin 3.0 Albumin/Globulin Ratio 0.8 L Lipase 92 Urine Color Urine Appearance Urine pH Ur Specific [place] Urine Protein Urine Glucose (UA) Urine Ketones Urine Occult Blood Urine Nitrate Urine Bilirubin Urine Urobilinogen Ur Leukocyte Esterase Urine RBC Urine WBC Ur Squamous Epith Cells Urine Bacteria Ur Culture Indicated? Urine Opiates Screen Ur Oxycodone Screen Urine Methadone Screen Ur Barbiturates Screen U Tricyclic Antidepress Ur Phencyclidine Scrn Ur Amphetamines Screen U Methamphetamines Scrn Ur MDMA Scrn (Ecstasy) U Benzodiazepines Scrn Urine Cocaine Screen U Marijuana (THC) Screen Ethyl Alcohol Blood Type Antibody Screen Crossmatch 07/01/19 07/01/19 07/01/19 09:00 09:00 09:00 WBC RBC Hgb Hct MCV MCH MCHC RDW Plt Count Neut % (Auto) Lymph % (Auto) [place] % (Auto) Eos % (Auto) Baso % (Auto) Lymph # (Auto) [place] # (Auto) Baso # (Auto) Total Counted Seg Neutrophils % Band Neutrophils % Lymphocytes % (Manual) Atypical Lymphs % Monocytes % (Manual) Metamyelocytes % Myelocytes % Neutrophils # (Manual) Platelet Estimate RBC Morphology Polychromasia Anisocytosis Macrocytosis Tear Drop Cells Ovalocytes [place] Cells PT INR ABG pH ABG pCO2 ABG pO2 ABG HCO3 ABG Total CO2 ABG O2 Saturation ABG Base Excess FiO2 Sodium Potassium Chloride Carbon Dioxide BUN Creatinine Estimated GFR BUN/Creatinine Ratio Glucose Lactate 22.4 H* Calcium Total Bilirubin AST ALT Alkaline Phosphatase Ammonia 238.0 H Total Creatine Kinase CK-MB (CK-2) CK-MB (CK-2) Rel Index Troponin I Total Protein Albumin Globulin Albumin/Globulin Ratio Lipase Urine Color Urine Appearance Urine pH Ur Specific [place] Urine Protein Urine Glucose (UA) Urine Ketones Urine Occult Blood Urine Nitrate Urine Bilirubin Urine Urobilinogen Ur Leukocyte Esterase Urine RBC Urine WBC Ur Squamous Epith Cells Urine Bacteria Ur Culture Indicated? Urine Opiates Screen Ur Oxycodone Screen Urine Methadone Screen Ur Barbiturates Screen U Tricyclic Antidepress Ur Phencyclidine Scrn Ur Amphetamines Screen U Methamphetamines Scrn Ur MDMA Scrn (Ecstasy) U Benzodiazepines Scrn Urine Cocaine Screen U Marijuana (THC) Screen Ethyl Alcohol Blood Type A Positive Antibody Screen Negative Crossmatch See Detail 07/01/19 07/01/19 07/01/19 09:00 09:10 09:10 WBC RBC Hgb Hct MCV MCH MCHC RDW Plt Count Neut % (Auto) Lymph % (Auto) [place] % (Auto) Eos % (Auto) Baso % (Auto) Lymph # (Auto) [place] # (Auto) Baso # (Auto) Total Counted Seg Neutrophils % Band Neutrophils % Lymphocytes % (Manual) Atypical Lymphs % Monocytes % (Manual) Metamyelocytes % Myelocytes % Neutrophils # (Manual) Platelet Estimate RBC Morphology Polychromasia Anisocytosis Macrocytosis Tear Drop Cells Ovalocytes [place] Cells PT INR ABG pH ABG pCO2 ABG pO2 ABG HCO3 ABG Total CO2 ABG O2 Saturation ABG Base Excess FiO2 Sodium Potassium Chloride Carbon Dioxide BUN Creatinine Estimated GFR BUN/Creatinine Ratio Glucose Lactate Calcium Total Bilirubin AST ALT Alkaline Phosphatase Ammonia Total Creatine Kinase CK-MB (CK-2) CK-MB (CK-2) Rel Index Troponin I Total Protein Albumin Globulin Albumin/Globulin Ratio Lipase Urine Color Dark yellow Urine Appearance Cloudy Urine pH 5.0 Ur Specific [place] 1.020 Urine Protein Negative Urine Glucose (UA) Negative Urine Ketones Negative Urine Occult Blood 3+ H Urine Nitrate Negative Urine Bilirubin Negative Urine Urobilinogen 0.2 Ur Leukocyte Esterase 1+ H Urine RBC 5-10/hpf H Urine WBC 5-10/hpf H Ur Squamous Epith Cells 0-1 /hpf Urine Bacteria Moderate (10-30) H Ur Culture Indicated? Specimen cultured Urine Opiates Screen Negative Ur Oxycodone Screen Negative Urine Methadone Screen Negative Ur Barbiturates Screen Negative U Tricyclic Antidepress Negative Ur Phencyclidine Scrn Negative Ur Amphetamines Screen Negative U Methamphetamines Scrn Negative Ur MDMA Scrn (Ecstasy) Negative U Benzodiazepines Scrn Negative Urine Cocaine Screen Negative U Marijuana (THC) Screen Negative Ethyl Alcohol < 10 Blood Type Antibody Screen Crossmatch 07/01/19 07/01/19 10:44 11:32 WBC RBC Hgb Hct MCV MCH MCHC RDW Plt Count Neut % (Auto) Lymph % (Auto) [place] % (Auto) Eos % (Auto) Baso % (Auto) Lymph # (Auto) [place] # (Auto) Baso # (Auto) Total Counted Seg Neutrophils % Band Neutrophils % Lymphocytes % (Manual) Atypical Lymphs % Monocytes % (Manual) Metamyelocytes % Myelocytes % Neutrophils # (Manual) Platelet Estimate RBC Morphology Polychromasia Anisocytosis Macrocytosis Tear Drop Cells Ovalocytes [place] Cells PT INR ABG pH 6.91 L* ABG pCO2 19.4 L* ABG pO2 100 ABG HCO3 4 L ABG Total CO2 < 5 L ABG O2 Saturation 91 L ABG Base Excess -29.0 L FiO2 0.21 Sodium Potassium Chloride Carbon Dioxide BUN Creatinine Estimated GFR BUN/Creatinine Ratio Glucose Lactate 22.4 H* Calcium Total Bilirubin AST ALT Alkaline Phosphatase Ammonia Total Creatine Kinase CK-MB (CK-2) CK-MB (CK-2) Rel Index Troponin I Total Protein Albumin Globulin Albumin/Globulin Ratio Lipase Urine Color Urine Appearance Urine pH Ur Specific [place] Urine Protein Urine Glucose (UA) Urine Ketones Urine Occult Blood Urine Nitrate Urine Bilirubin Urine Urobilinogen Ur Leukocyte Esterase Urine RBC Urine WBC Ur Squamous Epith Cells Urine Bacteria Ur Culture Indicated? Urine Opiates Screen Ur Oxycodone Screen Urine Methadone Screen Ur Barbiturates Screen U Tricyclic Antidepress Ur Phencyclidine Scrn Ur Amphetamines Screen U Methamphetamines Scrn Ur MDMA Scrn (Ecstasy) U Benzodiazepines Scrn Urine Cocaine Screen U Marijuana (THC) Screen Ethyl Alcohol Blood Type Antibody Screen Crossmatch Assessment & Plan Assessment & Plan narrative: 1. 73-year-old female with longstanding history of alcoholism who presents to the hospital with acute metabolic encephalopathy, acute Blood Loss Anemia, Acute Renal Failure, Acute Liver Failure, Hepatic Encephalopathy. Patient's metabolic encephalopathy is multifactorial. , This may be precipitated by recent bleeding, versus alcoholic liver disease. In addition she has severe metabolic acidosis, hepatic failure with a meld score of 30 and an active GI bleed. The patient is critically ill. She is a full code. Her chest x-ray in the emergency department was unremarkable. Head CT in the emergency department showed no evidence of bleeding. The patient critically ill, and will require extensive resuscitation. 2. Shock, etiology unclear, patient with a lactate of 22[place] [address], creatinine of 2.4, and acute metabolic encephalopathy. Patient will receive IV fluids, empiric antibiotics with ceftriaxone, in addition to pressors if indicated. Her initial UA is positive. Culture is still pending. 3. Acute GI bleed, with associated blood loss anemia, suspect lower GI bleed given bright red blood per rectum. However given the patient's history alcoholism there is concern for either peptic ulcer disease, versus variceal bleeding which seems less likely. Patient has been transfused 2 units of blood in the emergency department. She will save an additional 2 units. She has been placed on an IV proton pump inhibitor. Surgery been consulted. Patient will have a bowel prep. Anticipate upper endoscopy and colonoscopy tomorrow. 3. Acute liver failure, etiology likely related to ongoing alcoholism. Patient may have underlying cirrhosis. Her meld score is greater than 30. INR is elevated at 2.4, bilirubin 2.9 and her albumin is very low. Will transfuse, consider NG/rectal tube for lactulose. Patient will be placed on a CIWA protocol anticipating alcohol withdrawal. 4. Acute renal failure, suspect secondary to septic shock vs.hemorrhagic shock, blood loss anemia and possible bleeding. The patient will continue with aggressive IV hydration. Given her severe metabolic acidosis she will be placed on D5W with 3 amps of bicarbonate. Will repeat labs. Avoid nephrotoxin agents. 5. Metabolic acidosis-suspect secondary to alcoholism, GI bleeding, or park probable septic shock. This is severe. Patient will be given bicarbonate to refers. 6. Alcohol dependence, CIWA protocol as above 60 minutes critical care time spent on this patient
[2019-07-01 15:54] LABS: Add Manual Diff / Slide Review NO; Basophils Absolute Auto 100 /uL (0-100); Basophils Percent Auto 0.3 % (0-2); Eosinophils Absolute Auto 0 /uL (0-450); Eosinophils Percent Auto 0.1 % (2-4); Hematocrit 22.5 % (36-46); Lymphocytes Absolute Auto 5000 /uL (1100-4500); Lymphocytes Percent Auto 22.3 % (25-40); Mean Corpuscular HGB Conc 30.9 % (30-36); Mean Corpuscular Volume 106.8 fL (80-100); Monocytes Absolute Auto 1300 /uL (0-900); Monocytes Percent Auto 5.8 % (3-14); Neutrophils Absolute Auto 16100 /uL (1500-7000); Neutrophils Percent Auto 71.5 % (50-75); Platelet Count 145 X10^3/uL (150-400); Red Blood Cell Count 2.11 X10^6/uL (4.0-5.2); Red Cell Distribution Width 20.3 % (11.6-14.8); White Blood Cell Count 22.6 X10^3/uL (4.5-11.0)
[2019-07-01 16:00] LABS: INR 3.2 (0.9-1.3); Prothrombin Time 37.8 SECONDS (10.1-12.7)
[2019-07-01 16:05] LABS: Alanine Aminotransferase 83 IU/L (9-52); Albumin 1.7 g/dL (3.5-5.0); Albumin Globulin Ratio 0.7 (1.0-2.8); Alkaline Phosphatase 25 U/L (38-126); Aspartate Aminotransferase 441 IU/L (14-36); BUN Creatinine Ratio 17.6 (6-22); Bilirubin Total 2.8 mg/dL (0.2-1.3); Blood Urea Nitrogen 44 mg/dL (7-17); Calcium 7.3 mg/dL (8.4-10.2); Chloride 111 mmol/L (98-107); Estimated Glomerular Filt Rate 18.9 mL/min (>60); Globulin 2.3 g/dL (1.7-4.1); Glucose 99 mg/dL (80-110); HEMOLYSIS < 15 (0-50); Sodium 140 mmol/L (137-145)
[2019-07-01 16:09] LABS: Carbon Dioxide 8 mmol/L (22-32); Potassium 6.3 mmol/L (3.4-5.1)
[2019-07-01 16:13] LABS: PTT Partial Thromboplastin Tim 73 SECONDS (26.4-36.2)
[2019-07-01 16:16] LABS: Lactate (Lactic Acid) 20.1 mmol/L (0.7-2.1)
[2019-07-01 16:17] LABS: Anisocytosis 1+; Macrocytosis 2+; Nucleated Red Blood Cells 2 #/Diff
--- NOTE | 2019-07-01 16:17 | PM.CN ---
History of Present Illness Consult details Date Patient Seen: 07/01/19 Time Patient Seen: 16:18 Chief complaint: Weakness, hypoglycemia Reason for consult: Anemia/lower GI bleed Requesting provider: Delaney Antonio Narrative: The patient is a woman with a history of significant alcohol consumption over her lifetime. The last 2 weeks she has been feeling poorly. She had an episode of low-grade fever nausea GI upset diarrhea and since that time has been becoming gradually more weak and spending more more time in bed. She may have had DTs in the past. It is believed unless she snuck alcohol her last alcohol intake was about 2 weeks ago. She may have had several episodes of DTs in the past. She also is reported to have had a recent nose bleed. She has not been noted to have hematemesis. She did have vomiting a week ago but her significant other did not see it.. This morning she apparently had a bowel movement with a lot of blood and some black material as well. She was found on the floor and not responsive and was brought to the emergency room. I was asked to see her regarding or GI bleeding. The patient can't provide me no history. Her significant other is the source of most of this information. Her 2 sons who I have met also do not know a great deal about her.. [facility] Medical History (Updated 07/01/19 @ 16:27 by Saurav Campbell MD) Healthy adult (Acute) Presence of arterial stent (Acute) Surgical History No pertinent past surgical history (Acute) Family History (Updated 07/01/19 @ 15:51 by Delaney Antonio MD) Mother Dementia Social History (Updated 07/01/19 @ 16:40 by Saurav Campbell MD) Smoking Status: Current every day smoker alcohol intake: current Family History (Updated 07/01/19 @ 15:51 by Delaney Antonio MD) Mother Dementia Social History (Updated 07/01/19 @ 16:40 by Saurav Campbell MD) Smoking Status: Current every day smoker alcohol intake: current Meds Home Medications and Allergies Home Medications Medication Instructions Recorded Confirmed Type Unobtainable 07/01/19 07/01/19 History Allergies Allergy/AdvReac Type Severity Reaction Status Date / Time atorvastatin AdvReac Unknown Muscle Pain Verified 07/01/19 09:25 simvastatin AdvReac Unknown Muscle Verified 07/01/19 09:25 Pain, Nightmares Review of Systems Review of Systems Narrative: Significant other states that she has had respiratory symptoms. She does not see a doctor regularly. No cardiac history apparent. She has had a stent in her left leg according to her significant other ROS Unobtainable: unobtainable due to mental status Exam Vital Signs (past 8 hours): - 07/01/19 08:40 07/01/19 09:00 07/01/19 09:10 Temperature 96.0 F L 96.1 F L Pulse Rate 80 86 88 Respiratory Rate 28 H 21 22 Blood Pressure 84/43 L Blood Pressure [Right Arm] 109/40 L 88/35 L Pulse Oximetry 99 98 100 07/01/19 09:15 07/01/19 09:20 07/01/19 09:25 Temperature Pulse Rate 84 91 H 87 Respiratory Rate 20 21 18 Blood Pressure Blood Pressure [Right Arm] 90/42 L 89/73 L 82/49 L Pulse Oximetry 100 99 100 07/01/19 09:35 07/01/19 09:40 07/01/19 10:01 Temperature Pulse Rate 87 84 85 Respiratory Rate 22 21 22 Blood Pressure Blood Pressure [Right Arm] 78/48 L 105/35 L 104/36 L Pulse Oximetry 99 99 98 07/01/19 10:15 07/01/19 10:30 07/01/19 10:35 Temperature Pulse Rate 86 83 82 Respiratory Rate 22 21 21 Blood Pressure Blood Pressure [Right Arm] 100/36 L 109/34 L 99/36 L Pulse Oximetry 99 93 94 07/01/19 10:40 07/01/19 10:48 07/01/19 11:00 Temperature 95.3 F L Pulse Rate 81 82 80 Respiratory Rate 20 20 18 Blood Pressure 93/36 L Blood Pressure [Right Arm] 93/36 L 88/31 L Pulse Oximetry 95 91 07/01/19 11:01 07/01/19 11:07 07/01/19 11:45 Temperature 96.1 F L Pulse Rate 80 78 82 Respiratory Rate 22 22 22 Blood Pressure 98/36 L Blood Pressure [Right Arm] 88/31 L 102/35 L Pulse Oximetry 93 100 07/01/19 12:04 07/01/19 12:05 07/01/19 12:15 Temperature 96.2 F L 96.0 F L Pulse Rate 84 82 83 Respiratory Rate 20 22 21 Blood Pressure 99/32 L 98/30 L Blood Pressure [Right Arm] 103/35 L Pulse Oximetry 99 07/01/19 12:25 07/01/19 12:30 07/01/19 12:47 Temperature 96.0 F L Pulse Rate 82 83 84 Respiratory Rate 20 20 21 Blood Pressure 102/36 L Blood Pressure [Right Arm] 106/36 L 104/53 L Pulse Oximetry 99 98 07/01/19 13:10 07/01/19 13:14 07/01/19 13:21 Temperature 96.2 F L 96.2 F L Pulse Rate 84 83 81 Respiratory Rate 20 20 22 Blood Pressure 116/29 L Blood Pressure [Right Arm] 122/80 111/43 L Pulse Oximetry 97 97 07/01/19 13:25 07/01/19 13:40 07/01/19 13:55 Temperature 96.2 F L Pulse Rate 84 83 82 Respiratory Rate 21 21 24 Blood Pressure 110/47 L Blood Pressure [Right Arm] 106/46 L 110/47 L Pulse Oximetry 99 100 100 07/01/19 15:30 Temperature 96.0 F L Pulse Rate 99 H Respiratory Rate 21 Blood Pressure 91/57 L Blood Pressure [Right Arm] Pulse Oximetry 97 Oxygen Delivery Method Nasal Cannula Oxygen Flow Rate 2 Narrative Exam Narrative: Poorly responsive woman laying rather still with occasional movements of her upper extremities. Color is [place]. Eyes are mildly icteric. Conjunctivae are pale. Does not open her mouth but her lips are dry. Her skin is sallow in thinned. I feel no masses in her neck or supraclavicular areas including nodes. Lungs are clear and she is mildly tachypneic. Equal percussion. Heart regular rate and rhythm without murmur gallop. No obvious bruit in the neck. Her abdomen is protuberant but also distended. She has a midline scar from the umbilicus down of uncertain etiology. Family does not know what was done. She may have a fluid wave the frankly she is distended and protuberant enough it is difficult to tell. Is also difficult to feel any masses. There is no guarding and no wincing whenever she is examine. I cannot feel pedal pulses. She has decreased hair in her extremities. Skin is attenuated and thin. She does not respond in any effective manner. Objective Labs Result Diagrams: 07/01/19 15:40 07/01/19 15:40 Labs: Laboratory Results - last 24 hr 07/01/19 07/01/19 07/01/19 09:00 09:00 09:00 WBC 20.8 H RBC 1.15 L Hgb 4.0 L* Hct 14.2 L* MCV 123.6 H MCH 34.5 H MCHC 27.9 L RDW 20.0 H Plt Count 290 Neut % (Auto) Not Reportable Lymph % (Auto) Not Reportable [place] % (Auto) Not Reportable Eos % (Auto) Not Reportable Baso % (Auto) Not Reportable Neut # (Auto) Lymph # (Auto) Not Reportable [place] # (Auto) Not Reportable Eos # (Auto) Baso # (Auto) Not Reportable Total Counted 100 Seg Neutrophils % 66.0 Band Neutrophils % 6.0 Lymphocytes % (Manual) 18.0 L Atypical Lymphs % 1.0 H Monocytes % (Manual) 5.0 Metamyelocytes % 2.0 H Myelocytes % 2.0 H Neutrophils # (Manual) 21738 H Platelet Estimate Adequate on smear RBC Morphology See below Polychromasia 2+ H Anisocytosis 2+ H Macrocytosis 3+ H Tear Drop Cells 1+ H Ovalocytes 1+ H Hernandez Cells 3+ H PT 28.6 H INR 2.4 H APTT ABG pH ABG pCO2 ABG pO2 ABG HCO3 ABG Total CO2 ABG O2 Saturation ABG Base Excess FiO2 Sodium 143 Potassium 5.8 H Chloride 107 Carbon Dioxide 7 L* BUN 46 H Creatinine 2.80 H Estimated GFR 16.6 L BUN/Creatinine Ratio 16.4 Glucose 35 L* Lactate Calcium 8.8 Total Bilirubin 2.9 H AST 173 H ALT 35 Alkaline Phosphatase 41 Ammonia Total Creatine Kinase 333 H CK-MB (CK-2) 5.98 H CK-MB (CK-2) Rel Index 1.8 Troponin I 0.017 Total Protein 5.4 L Albumin 2.4 L Globulin 3.0 Albumin/Globulin Ratio 0.8 L Lipase 92 Urine Color Urine Appearance Urine pH Ur Specific [place] Urine Protein Urine Glucose (UA) Urine Ketones Urine Occult Blood Urine Nitrate Urine Bilirubin Urine Urobilinogen Ur Leukocyte Esterase Urine RBC Urine WBC Ur Squamous Epith Cells Urine Bacteria Ur Culture Indicated? Urine Opiates Screen Ur Oxycodone Screen Urine Methadone Screen Ur Barbiturates Screen U Tricyclic Antidepress Ur Phencyclidine Scrn Ur Amphetamines Screen U Methamphetamines Scrn Ur MDMA Scrn (Ecstasy) U Benzodiazepines Scrn Urine Cocaine Screen U Marijuana (THC) Screen Ethyl Alcohol Blood Type Antibody Screen Crossmatch 07/01/19 07/01/19 07/01/19 09:00 09:00 09:00 WBC RBC Hgb Hct MCV MCH MCHC RDW Plt Count Neut % (Auto) Lymph % (Auto) [place] % (Auto) Eos % (Auto) Baso % (Auto) Neut # (Auto) Lymph # (Auto) [place] # (Auto) Eos # (Auto) Baso # (Auto) Total Counted Seg Neutrophils % Band Neutrophils % Lymphocytes % (Manual) Atypical Lymphs % Monocytes % (Manual) Metamyelocytes % Myelocytes % Neutrophils # (Manual) Platelet Estimate RBC Morphology Polychromasia Anisocytosis Macrocytosis Tear Drop Cells Ovalocytes Hernandez Cells PT INR APTT ABG pH ABG pCO2 ABG pO2 ABG HCO3 ABG Total CO2 ABG O2 Saturation ABG Base Excess FiO2 Sodium Potassium Chloride Carbon Dioxide BUN Creatinine Estimated GFR BUN/Creatinine Ratio Glucose Lactate 22.4 H* Calcium Total Bilirubin AST ALT Alkaline Phosphatase Ammonia 238.0 H Total Creatine Kinase CK-MB (CK-2) CK-MB (CK-2) Rel Index Troponin I Total Protein Albumin Globulin Albumin/Globulin Ratio Lipase Urine Color Urine Appearance Urine pH Ur Specific [place] Urine Protein Urine Glucose (UA) Urine Ketones Urine Occult Blood Urine Nitrate Urine Bilirubin Urine Urobilinogen Ur Leukocyte Esterase Urine RBC Urine WBC Ur Squamous Epith Cells Urine Bacteria Ur Culture Indicated? Urine Opiates Screen Ur Oxycodone Screen Urine Methadone Screen Ur Barbiturates Screen U Tricyclic Antidepress Ur Phencyclidine Scrn Ur Amphetamines Screen U Methamphetamines Scrn Ur MDMA Scrn (Ecstasy) U Benzodiazepines Scrn Urine Cocaine Screen U Marijuana (THC) Screen Ethyl Alcohol Blood Type A Positive Antibody Screen Negative Crossmatch See Detail 07/01/19 07/01/19 07/01/19 09:00 09:10 09:10 WBC RBC Hgb Hct MCV MCH MCHC RDW Plt Count Neut % (Auto) Lymph % (Auto) [place] % (Auto) Eos % (Auto) Baso % (Auto) Neut # (Auto) Lymph # (Auto) [place] # (Auto) Eos # (Auto) Baso # (Auto) Total Counted Seg Neutrophils % Band Neutrophils % Lymphocytes % (Manual) Atypical Lymphs % Monocytes % (Manual) Metamyelocytes % Myelocytes % Neutrophils # (Manual) Platelet Estimate RBC Morphology Polychromasia Anisocytosis Macrocytosis Tear Drop Cells Ovalocytes [place] Cells PT INR APTT ABG pH ABG pCO2 ABG pO2 ABG HCO3 ABG Total CO2 ABG O2 Saturation ABG Base Excess FiO2 Sodium Potassium Chloride Carbon Dioxide BUN Creatinine Estimated GFR BUN/Creatinine Ratio Glucose Lactate Calcium Total Bilirubin AST ALT Alkaline Phosphatase Ammonia Total Creatine Kinase CK-MB (CK-2) CK-MB (CK-2) Rel Index Troponin I Total Protein Albumin Globulin Albumin/Globulin Ratio Lipase Urine Color Dark yellow Urine Appearance Cloudy Urine pH 5.0 Ur Specific [place] 1.020 Urine Protein Negative Urine Glucose (UA) Negative Urine Ketones Negative Urine Occult Blood 3+ H Urine Nitrate Negative Urine Bilirubin Negative Urine Urobilinogen 0.2 Ur Leukocyte Esterase 1+ H Urine RBC 5-10/hpf H Urine WBC 5-10/hpf H Ur Squamous Epith Cells 0-1 /hpf Urine Bacteria Moderate (10-30) H Ur Culture Indicated? Specimen cultured Urine Opiates Screen Negative Ur Oxycodone Screen Negative Urine Methadone Screen Negative Ur Barbiturates Screen Negative U Tricyclic Antidepress Negative Ur Phencyclidine Scrn Negative Ur Amphetamines Screen Negative U Methamphetamines Scrn Negative Ur MDMA Scrn (Ecstasy) Negative U Benzodiazepines Scrn Negative Urine Cocaine Screen Negative U Marijuana (THC) Screen Negative Ethyl Alcohol < 10 Blood Type Antibody Screen Crossmatch 07/01/19 07/01/19 07/01/19 10:44 11:32 15:40 WBC RBC Hgb Hct MCV MCH MCHC RDW Plt Count Neut % (Auto) Lymph % (Auto) [place] % (Auto) Eos % (Auto) Baso % (Auto) Neut # (Auto) Lymph # (Auto) [place] # (Auto) Eos # (Auto) Baso # (Auto) Total Counted Seg Neutrophils % Band Neutrophils % Lymphocytes % (Manual) Atypical Lymphs % Monocytes % (Manual) Metamyelocytes % Myelocytes % Neutrophils # (Manual) Platelet Estimate RBC Morphology Polychromasia Anisocytosis Macrocytosis Tear Drop Cells Ovalocytes Hernandez Cells PT 37.8 H D INR 3.2 H APTT 73 H* ABG pH 6.91 L* ABG pCO2 19.4 L* ABG pO2 100 ABG HCO3 4 L ABG Total CO2 < 5 L ABG O2 Saturation 91 L ABG Base Excess -29.0 L FiO2 0.21 Sodium Potassium Chloride Carbon Dioxide BUN Creatinine Estimated GFR BUN/Creatinine Ratio Glucose Lactate 22.4 H* Calcium Total Bilirubin AST ALT Alkaline Phosphatase Ammonia Total Creatine Kinase CK-MB (CK-2) CK-MB (CK-2) Rel Index Troponin I Total Protein Albumin Globulin Albumin/Globulin Ratio Lipase Urine Color Urine Appearance Urine pH Ur Specific [place] Urine Protein Urine Glucose (UA) Urine Ketones Urine Occult Blood Urine Nitrate Urine Bilirubin Urine Urobilinogen Ur Leukocyte Esterase Urine RBC Urine WBC Ur Squamous Epith Cells Urine Bacteria Ur Culture Indicated? Urine Opiates Screen Ur Oxycodone Screen Urine Methadone Screen Ur Barbiturates Screen U Tricyclic Antidepress Ur Phencyclidine Scrn Ur Amphetamines Screen U Methamphetamines Scrn Ur MDMA Scrn (Ecstasy) U Benzodiazepines Scrn Urine Cocaine Screen U Marijuana (THC) Screen Ethyl Alcohol Blood Type Antibody Screen Crossmatch 07/01/19 07/01/19 07/01/19 15:40 15:40 15:40 WBC 22.6 H RBC 2.11 L Hgb 7.0 L Hct 22.5 L MCV 106.8 H D MCH 33.0 MCHC 30.9 D RDW 20.3 H Plt Count 145 L Neut % (Auto) 71.5 Lymph % (Auto) 22.3 L [place] % (Auto) 5.8 Eos % (Auto) 0.1 L Baso % (Auto) 0.3 Neut # (Auto) 98040 H Lymph # (Auto) 5000 H [place] # (Auto) 1300 H Eos # (Auto) 0 Baso # (Auto) 100 Total Counted Seg Neutrophils % Band Neutrophils % Lymphocytes % (Manual) Atypical Lymphs % Monocytes % (Manual) Metamyelocytes % Myelocytes % Neutrophils # (Manual) Platelet Estimate RBC Morphology Polychromasia Anisocytosis Macrocytosis Tear Drop Cells Ovalocytes Hernandez Cells PT INR APTT ABG pH ABG pCO2 ABG pO2 ABG HCO3 ABG Total CO2 ABG O2 Saturation ABG Base Excess FiO2 Sodium 140 Potassium 6.3 H* Chloride 111 H Carbon Dioxide 8 L* BUN 44 H Creatinine 2.50 H Estimated GFR 18.9 L BUN/Creatinine Ratio 17.6 Glucose 99 Lactate 20.1 H* Calcium 7.3 L Total Bilirubin 2.8 H AST 441 H ALT 83 H Alkaline Phosphatase 25 L Ammonia Total Creatine Kinase CK-MB (CK-2) CK-MB (CK-2) Rel Index Troponin I Total Protein 4.0 L Albumin 1.7 L Globulin 2.3 Albumin/Globulin Ratio 0.7 L Lipase Urine Color Urine Appearance Urine pH Ur Specific [place] Urine Protein Urine Glucose (UA) Urine Ketones Urine Occult Blood Urine Nitrate Urine Bilirubin Urine Urobilinogen Ur Leukocyte Esterase Urine RBC Urine WBC Ur Squamous Epith Cells Urine Bacteria Ur Culture Indicated? Urine Opiates Screen Ur Oxycodone Screen Urine Methadone Screen Ur Barbiturates Screen U Tricyclic Antidepress Ur Phencyclidine Scrn Ur Amphetamines Screen U Methamphetamines Scrn Ur MDMA Scrn (Ecstasy) U Benzodiazepines Scrn Urine Cocaine Screen U Marijuana (THC) Screen Ethyl Alcohol Blood Type Antibody Screen Crossmatch Assessment & Plan Assessment & Plan narrative: Critically ill patient with a GI bleed. It could be upper and lower. It is difficult to determine. She is anemic and is being transfused. She is acidotic profoundly so and was hypoglycemic on arrival. She was also hypotensive but that has improved. She is oxygenating. She is hyperkalemic and appears to have an element of renal failure as well as profound liver failure with elevated coagulation test. Both her PT and PTT are quite elevated though she is on no blood thinners. Her ammonia level is 10 times normal. She does not appear to have trauma caught or a stroke causing her change in mental status though process 0 presumptively she has a metabolic encephalopathy. She is profoundly ill and is likely to succumb. Her family has been informed. They apparently have requested a DNR status. At this time HER2 sounds are the person's giving consent. Her significant other is unmarried to her and apparently has limited legal cyst standing in this regard as far as providing consent etc. The family intends to look for a medical power of civil litigation attorney document. This was certainly clarify matters.
[2019-07-01 16:18] LABS: Polychromasia 1+
[2019-07-01] MEDS: CALCIUM GLUCONATE 9.3 MEQ in SODIUM CHLORIDE 0.9% 50 ML 140 ML IV (16:46)
[2019-07-01] MEDS: INSULIN REGULAR 100 UNIT/ML 3 ML VIAL 10 UNIT SUBCUT (16:47)
[2019-07-01] MEDS: WATER IV (16:47)
[2019-07-01] MEDS: DEXTROSE 5% IV (16:47)
[2019-07-01] MEDS: SODIUM BICARB IV (16:47)
[2019-07-01] MEDS: LACTULOSE 20 GM/30 ML SOLUTION PR (17:01)
[2019-07-01 17:06] LABS: Troponin I 0.071 ng/mL (0.01-0.034)
[2019-07-01] MEDS: CEFTRIAXONE 2 GM/50 ML FROZ.PIGGY IV (17:10)
[2019-07-01 17:50] LABS: Reflexed Lactate in 2 Hours Y
--- NOTE | 2019-07-01 17:54 | PM.EVENT ---
Event Note Date Patient Seen: 07/01/19 Event Note: Spoke to patient's son and significant other. Based on her current clinical condition they would like to make her DNR DNI at this time.
[2019-07-01 19:20] LABS: Lactate 2HR (Lactic Acid Rflx) 18.6 mmol/L (0.7-2.1)
[2019-07-01 22:18] LABS: BUN Creatinine Ratio 21.4 (6-22); Blood Urea Nitrogen 47 mg/dL (7-17); Calcium 6.9 mg/dL (8.4-10.2); Carbon Dioxide 17 mmol/L (22-32); Chloride 109 mmol/L (98-107); Estimated Glomerular Filt Rate 21.9 mL/min (>60); Glucose 188 mg/dL (80-110); HEMOLYSIS < 15 (0-50); Potassium 5.1 mmol/L (3.4-5.1); Sodium 141 mmol/L (137-145)
[2019-07-01 22:19] LABS: Hematocrit 18.2 % (36-46); Hemoglobin 6.1 g/dL (12.0-16.0)
[2019-07-01 22:20] LABS: Troponin I 0.219 ng/mL (0.01-0.034)
[2019-07-01 23:48] LABS: Reflexed Lactate in 2 Hours Y
[2019-07-02] VITALS (25 sets, daily range): BP systolic 90–130; BP diastolic 32–73; PULSE 90–107; RESP 23–30; TEMP 35.8–38.2; O2SAT 92–97
[2019-07-02] MEDS: SODIUM BICARB 8.4% VIAL 150 MEQ in DEXTROSE 5% WATER 1,000 ML 250 MEQ IV ×2 (00:05→05:07)
[2019-07-02] MEDS: LACTULOSE 20 GM/30 ML SOLUTION PR (00:06)
[2019-07-02] MEDS: PANTOPRAZOLE 40 MG VIAL IV ×2 (00:06→08:19)
[2019-07-02 00:49] LABS: Lactate 2HR (Lactic Acid Rflx) 14.5 mmol/L (0.7-2.1)
[2019-07-02 05:36] LABS: Add Manual Diff / Slide Review NO; Basophils Absolute Auto 100 /uL (0-100); Basophils Percent Auto 0.9 % (0-2); Eosinophils Absolute Auto 0 /uL (0-450); Eosinophils Percent Auto 0.1 % (2-4); Hematocrit 24.1 % (36-46); Hemoglobin 8.3 g/dL (12.0-16.0); Lymphocytes Absolute Auto 1700 /uL (1100-4500); Lymphocytes Percent Auto 12.5 % (25-40); Mean Corpuscular HGB Conc 34.3 % (30-36); Mean Corpuscular Volume 93.4 fL (80-100); Monocytes Absolute Auto 600 /uL (0-900); Monocytes Percent Auto 4.6 % (3-14); Neutrophils Absolute Auto 11100 /uL (1500-7000); Neutrophils Percent Auto 81.9 % (50-75); Red Blood Cell Count 2.58 X10^6/uL (4.0-5.2); Red Cell Distribution Width 17.2 % (11.6-14.8); White Blood Cell Count 13.6 X10^3/uL (4.5-11.0)
[2019-07-02 05:39] LABS: INR 4.4 (0.9-1.3); Prothrombin Time 52.3 SECONDS (10.1-12.7)
[2019-07-02 05:42] LABS: PTT Partial Thromboplastin Tim 57 SECONDS (26.4-36.2)
[2019-07-02 05:43] LABS: Alanine Aminotransferase 428 IU/L (9-52); Albumin 1.6 g/dL (3.5-5.0); Albumin Globulin Ratio 0.8 (1.0-2.8); Alkaline Phosphatase 33 U/L (38-126); BUN Creatinine Ratio 24.3 (6-22); Bilirubin Total 3.9 mg/dL (0.2-1.3); Blood Urea Nitrogen 56 mg/dL (7-17); Calcium 6.7 mg/dL (8.4-10.2); Carbon Dioxide 28 mmol/L (22-32); Chloride 103 mmol/L (98-107); Estimated Glomerular Filt Rate 20.8 mL/min (>60); Globulin 2.1 g/dL (1.7-4.1); Glucose 123 mg/dL (80-110); HEMOLYSIS < 15 (0-50); Magnesium 1.5 mg/dL (1.6-2.3); Potassium 4.5 mmol/L (3.4-5.1); Sodium 142 mmol/L (137-145); Total Protein 3.7 g/dL (6.3-8.2)
[2019-07-02 06:02] LABS: PO2 ABG 65 mmHg (80-100); pH ABG 7.54 (7.35-7.45)
[2019-07-02 06:03] LABS: Fractionated Inspired Oxygen 24; HCO3 ABG 27 mmol/L (22-26); Oxygen Saturation ABG 95 % (95-100); TCO2 ABG 28 mmol/L (21-31)
[2019-07-02 06:07] LABS: Platelet Count 51 X10^3/uL (150-400)
[2019-07-02 06:11] LABS: Lactate (Lactic Acid) 8.4 mmol/L (0.7-2.1)
[2019-07-02 06:12] LABS: Aspartate Aminotransferase 3114 IU/L (14-36); Troponin I 0.613 ng/mL (0.01-0.034)
[2019-07-02] MEDS: SODIUM CHLORIDE 0.9% 1,000 ML 150 ML IV (06:33)
[2019-07-02 07:45] LABS: Reflexed Lactate in 2 Hours Y
[2019-07-02] MEDS: MAGNESIUM SULFATE 2 GM/50 ML PIGGYBACK IV (08:13)
[2019-07-02 08:28] LABS: Lactate 2HR (Lactic Acid Rflx) 6.5 mmol/L (0.7-2.1)
[2019-07-02] MEDS: NICOTINE 21 MG PATCH TOP (08:49)
--- NOTE | 2019-07-02 09:04 | CM.IDA ---
Initial DCP Assessment Note: From H+P Narrative: Patient is a 73-year-old female with a longstanding history of alcoholism who was brought in by medics as she was found down. According to the history obtained by the ER provider the patient has been drinking daily. She over the past week has essentially been in the bed and unable to get up and ambulate. She was found by her significant other down on the ground today. This [facility] called by Dr Campbell to the ICU yesterday as pt's partner Miguel and her two adult sons were gathered and Dr Antonio and Dr Hess were attempting to clarify DPOA status and code status. Pt w/poor prognosis, found obtunded at home and brought in by EMS. This [facility] introduced self and role to pt's family, Miguel very tearful.This [facility] explained to family that without documentation naming Miguel as DPOA, medical decisions would need to go through adult children, all understood and were agreeable to such. All in agreement to make pt DNR/DNI. This [facility] offered support, physicians expected that pt may not survive the night and family made aware of this yesterday. This [facility] following closely today for any needs that might arise. Further assessment if appropriate. ASIA Higginbotham
--- NOTE | 2019-07-02 11:11 | PM.CHAP ---
Visit with family. Prayer & Encouragement.
[2019-07-02 11:32] LABS: Add Manual Diff / Slide Review NO; Basophils Absolute Auto 100 /uL (0-100); Basophils Percent Auto 0.6 % (0-2); Eosinophils Absolute Auto 0 /uL (0-450); Hematocrit 24.6 % (36-46); Hemoglobin 8.8 g/dL (12.0-16.0); Lymphocytes Absolute Auto 1900 /uL (1100-4500); Lymphocytes Percent Auto 13.2 % (25-40); Mean Corpuscular HGB Conc 35.5 % (30-36); Mean Corpuscular Hemoglobin 32.7 PG (26-34); Monocytes Absolute Auto 700 /uL (0-900); Monocytes Percent Auto 4.9 % (3-14); Neutrophils Absolute Auto 11700 /uL (1500-7000); Neutrophils Percent Auto 81.3 % (50-75); Platelet Count 43 X10^3/uL (150-400); Red Blood Cell Count 2.68 X10^6/uL (4.0-5.2); Red Cell Distribution Width 16.8 % (11.6-14.8); White Blood Cell Count 14.4 X10^3/uL (4.5-11.0)
[2019-07-02 11:40] LABS: INR 4.3 (0.9-1.3); Prothrombin Time 50.3 SECONDS (10.1-12.7)
[2019-07-02 11:43] LABS: BUN Creatinine Ratio 26.5 (6-22); Blood Urea Nitrogen 61 mg/dL (7-17); Calcium 6.6 mg/dL (8.4-10.2); Carbon Dioxide 29 mmol/L (22-32); Chloride 104 mmol/L (98-107); Estimated Glomerular Filt Rate 20.8 mL/min (>60); Glucose 63 mg/dL (80-110); HEMOLYSIS < 15 (0-50); PTT Partial Thromboplastin Tim 49 SECONDS (26.4-36.2); Sodium 141 mmol/L (137-145)
[2019-07-02 11:44] LABS: Alanine Aminotransferase 623 IU/L (9-52); Albumin 1.7 g/dL (3.5-5.0); Albumin Globulin Ratio 0.7 (1.0-2.8); Alkaline Phosphatase 48 U/L (38-126); Bilirubin Conjugated 1.1 md/dL (0.0-0.3); Bilirubin Total 4.4 mg/dL (0.2-1.3); Globulin 2.3 g/dL (1.7-4.1); HEMOLYSIS < 15 (0-50)
[2019-07-02 12:13] LABS: Troponin I 0.832 ng/mL (0.01-0.034)
[2019-07-02 12:19] LABS: Aspartate Aminotransferase 4816 IU/L (14-36)
[2019-07-02] MEDS: DEXTROSE 5% WATER 1,000 ML 50 ML IV (13:03)
[2019-07-02 14:36] LABS: BUN Creatinine Ratio 26.7 (6-22); Blood Urea Nitrogen 64 mg/dL (7-17); Calcium 6.6 mg/dL (8.4-10.2); Carbon Dioxide 26 mmol/L (22-32); Chloride 104 mmol/L (98-107); Estimated Glomerular Filt Rate 19.8 mL/min (>60); Glucose 72 mg/dL (80-110); HEMOLYSIS < 15 (0-50); Potassium 5.2 mmol/L (3.4-5.1); Sodium 141 mmol/L (137-145)
--- NOTE | 2019-07-02 14:56 | P.PN_ITS ---
Subjective Subjective Date Patient Seen: 07/02/19 Time Patient Seen: 08:30 Interval history: Ms. ramos is a 73-year-old female admitted to ICU with a GI bleed, acute liver failure, acute renal failure, and severe metabolic acidosis. Yesterday after discussion with family she was made DNR, DNI. This morning her liver enzymes shanae dramatically and her INR went to 4.4, her metabolic acidosis improved and she is no longer on bicarb. Her kidney function has largely been stable. I had a long discussion with the family about the patient's poor prognosis, and that most likely, given her liver function she will pass away without assistance breathing or possible chest compressions. They understand this and are accepting of this. They would still like to continue monitoring her hemoglobin for possible transfusion at this time in the hopes that her mental status will improve enough to be able to speak with them. Exam Vital Signs (past 8 hours): - 07/02/19 07:00 07/02/19 07:35 07/02/19 08:00 Temperature 97.3 F L 99.5 F Pulse Rate 96 H 98 H 100 H Respiratory Rate 26 H 28 H 24 Blood Pressure 125/61 106/42 L Pulse Oximetry 94 95 93 07/02/19 09:25 07/02/19 10:00 07/02/19 11:49 Temperature Pulse Rate 99 H 97 H 105 H Respiratory Rate 29 H 26 H 29 H Blood Pressure 108/40 L 97/44 L 118/48 L Pulse Oximetry 94 92 93 07/02/19 12:11 07/02/19 13:00 07/02/19 13:49 Temperature 99.2 F 99.2 F Pulse Rate 94 H 98 H 94 H Respiratory Rate 24 25 H 24 Blood Pressure 92/32 L Pulse Oximetry 94 94 92 07/02/19 14:00 Temperature 99.2 F Pulse Rate 92 H Respiratory Rate 30 H Blood Pressure 93/39 L Pulse Oximetry 94 Oxygen Delivery Method Room Air Oxygen Flow Rate 0 Narrative Exam Narrative: GENERAL APPEARANCE: Obtunded, breathing heavily. Has occasional movements that are not purposeful. SKIN: Inspection of the skin reveals no rashes, ulcerations or petechiae. HEENT: Normal sclera, mild icterus. Mucosa appears moist. NECK: Supple and symmetric. There was no thyroid enlargement, and no tenderness, or masses were felt. CHEST: Normal AP diameter and normal contour without any kyphoscoliosis. LUNGS: Auscultation of the lungs revealed no wheezes, rhonchi, or rales. CARDIOVASCULAR: There was a regular rate and rhythm without any murmurs, gallops, rubs. Peripheral pulses were 2+ and symmetric. ABDOMEN: Soft and non-distended. She is obese and difficult to assess for ascites. MUSCULOSKELETAL: There was no tenderness or effusions noted. Muscle strength and tone were normal. EXTREMITIES: No cyanosis, clubbing or edema. NEUROLOGIC: Obstunded, random movements of upper extremities, Objective Labs Result Diagrams: 07/02/19 11:15 07/02/19 14:15 Labs: Laboratory Results - last 24 hr 07/01/19 07/01/19 07/01/19 09:00 14:18 15:40 WBC RBC Hgb Hct MCV MCH MCHC RDW Plt Count Neut % (Auto) Lymph % (Auto) [place] % (Auto) Eos % (Auto) Baso % (Auto) Neut # (Auto) Lymph # (Auto) [place] # (Auto) Eos # (Auto) Baso # (Auto) Nucleated RBCs RBC Morphology Polychromasia Anisocytosis Macrocytosis PT 37.8 H D INR 3.2 H APTT 73 H* ABG pH ABG pCO2 ABG pO2 ABG HCO3 ABG Total CO2 ABG O2 Saturation ABG Base Excess FiO2 Sodium Potassium Chloride Carbon Dioxide BUN Creatinine Estimated GFR BUN/Creatinine Ratio Glucose Lactate Calcium Magnesium Total Bilirubin Conjugated Bilirubin Unconjugated Bilirubin AST ALT Alkaline Phosphatase Troponin I Total Protein Albumin Globulin Albumin/Globulin Ratio Nasal Screen MRSA (PCR) Negative for mrsa Blood Type A Positive Antibody Screen Negative Crossmatch See Detail 07/01/19 07/01/19 07/01/19 15:40 15:40 15:40 WBC 22.6 H RBC 2.11 L Hgb 7.0 L Hct 22.5 L MCV 106.8 H D MCH 33.0 MCHC 30.9 D RDW 20.3 H Plt Count 145 L Neut % (Auto) 71.5 Lymph % (Auto) 22.3 L [place] % (Auto) 5.8 Eos % (Auto) 0.1 L Baso % (Auto) 0.3 Neut # (Auto) 81101 H Lymph # (Auto) 5000 H [place] # (Auto) 1300 H Eos # (Auto) 0 Baso # (Auto) 100 Nucleated RBCs 2 H RBC Morphology See below Polychromasia 1+ H Anisocytosis 1+ H Macrocytosis 2+ H PT INR APTT ABG pH ABG pCO2 ABG pO2 ABG HCO3 ABG Total CO2 ABG O2 Saturation ABG Base Excess FiO2 Sodium 140 Potassium 6.3 H* Chloride 111 H Carbon Dioxide 8 L* BUN 44 H Creatinine 2.50 H Estimated GFR 18.9 L BUN/Creatinine Ratio 17.6 Glucose 99 Lactate 20.1 H* Calcium 7.3 L Magnesium Total Bilirubin 2.8 H Conjugated Bilirubin Unconjugated Bilirubin AST 441 H ALT 83 H Alkaline Phosphatase 25 L Troponin I 0.071 H Total Protein 4.0 L Albumin 1.7 L Globulin 2.3 Albumin/Globulin Ratio 0.7 L Nasal Screen MRSA (PCR) Blood Type Antibody Screen Crossmatch 07/01/19 07/01/19 07/01/19 15:40 18:35 18:50 WBC RBC Hgb Hct MCV MCH MCHC RDW Plt Count Neut % (Auto) Lymph % (Auto) [place] % (Auto) Eos % (Auto) Baso % (Auto) Neut # (Auto) Lymph # (Auto) [place] # (Auto) Eos # (Auto) Baso # (Auto) Nucleated RBCs RBC Morphology Polychromasia Anisocytosis Macrocytosis PT INR APTT ABG pH ABG pCO2 ABG pO2 ABG HCO3 ABG Total CO2 ABG O2 Saturation ABG Base Excess FiO2 Sodium Potassium Chloride Carbon Dioxide BUN Creatinine Estimated GFR BUN/Creatinine Ratio Glucose Lactate Cancelled 18.6 H* Calcium Magnesium 2.0 Total Bilirubin Conjugated Bilirubin Unconjugated Bilirubin AST ALT Alkaline Phosphatase Troponin I Total Protein Albumin Globulin Albumin/Globulin Ratio Nasal Screen MRSA (PCR) Blood Type Antibody Screen Crossmatch 07/01/19 07/01/19 07/01/19 21:40 21:40 21:40 WBC RBC Hgb 6.1 L* Hct 18.2 L* MCV MCH MCHC RDW Plt Count Neut % (Auto) Lymph % (Auto) [place] % (Auto) Eos % (Auto) Baso % (Auto) Neut # (Auto) Lymph # (Auto) [place] # (Auto) Eos # (Auto) Baso # (Auto) Nucleated RBCs RBC Morphology Polychromasia Anisocytosis Macrocytosis PT INR APTT ABG pH ABG pCO2 ABG pO2 ABG HCO3 ABG Total CO2 ABG O2 Saturation ABG Base Excess FiO2 Sodium 141 Potassium 5.1 D Chloride 109 H Carbon Dioxide 17 L BUN 47 H Creatinine 2.20 H Estimated GFR 21.9 L BUN/Creatinine Ratio 21.4 Glucose 188 H Lactate Calcium 6.9 L Magnesium Total Bilirubin Conjugated Bilirubin Unconjugated Bilirubin AST ALT Alkaline Phosphatase Troponin I 0.219 H* Total Protein Albumin Globulin Albumin/Globulin Ratio Nasal Screen MRSA (PCR) Blood Type Antibody Screen Crossmatch 07/01/19 07/02/19 07/02/19 21:40 00:05 05:20 WBC 13.6 H RBC 2.58 L Hgb 8.3 L Hct 24.1 L MCV 93.4 D MCH 32.0 MCHC 34.3 D RDW 17.2 H Plt Count 51 L Neut % (Auto) 81.9 H Lymph % (Auto) 12.5 L [place] % (Auto) 4.6 Eos % (Auto) 0.1 L Baso % (Auto) 0.9 Neut # (Auto) 37004 H Lymph # (Auto) 1700 [place] # (Auto) 600 Eos # (Auto) 0 Baso # (Auto) 100 Nucleated RBCs RBC Morphology Polychromasia Anisocytosis Macrocytosis PT INR APTT ABG pH ABG pCO2 ABG pO2 ABG HCO3 ABG Total CO2 ABG O2 Saturation ABG Base Excess FiO2 Sodium Potassium Chloride Carbon Dioxide BUN Creatinine Estimated GFR BUN/Creatinine Ratio Glucose Lactate 16.0 H* 14.5 H* Calcium Magnesium Total Bilirubin Conjugated Bilirubin Unconjugated Bilirubin AST ALT Alkaline Phosphatase Troponin I Total Protein Albumin Globulin Albumin/Globulin Ratio Nasal Screen MRSA (PCR) Blood Type Antibody Screen Crossmatch 07/02/19 07/02/19 07/02/19 05:20 05:20 05:20 WBC RBC Hgb Hct MCV MCH MCHC RDW Plt Count Neut % (Auto) Lymph % (Auto) [place] % (Auto) Eos % (Auto) Baso % (Auto) Neut # (Auto) Lymph # (Auto) [place] # (Auto) Eos # (Auto) Baso # (Auto) Nucleated RBCs RBC Morphology Polychromasia Anisocytosis Macrocytosis PT 52.3 H D INR 4.4 H APTT 57 H D ABG pH ABG pCO2 ABG pO2 ABG HCO3 ABG Total CO2 ABG O2 Saturation ABG Base Excess FiO2 Sodium 142 Potassium 4.5 Chloride 103 Carbon Dioxide 28 BUN 56 H Creatinine 2.30 H Estimated GFR 20.8 L BUN/Creatinine Ratio 24.3 H Glucose 123 H Lactate Calcium 6.7 L Magnesium 1.5 L Total Bilirubin 3.9 H Conjugated Bilirubin Unconjugated Bilirubin AST 3114 H ALT 428 H Alkaline Phosphatase 33 L Troponin I 0.613 H* Total Protein 3.7 L Albumin 1.6 L Globulin 2.1 Albumin/Globulin Ratio 0.8 L Nasal Screen MRSA (PCR) Blood Type Antibody Screen Crossmatch 07/02/19 07/02/19 07/02/19 05:20 05:46 08:10 WBC RBC Hgb Hct MCV MCH MCHC RDW Plt Count Neut % (Auto) Lymph % (Auto) [place] % (Auto) Eos % (Auto) Baso % (Auto) Neut # (Auto) Lymph # (Auto) [place] # (Auto) Eos # (Auto) Baso # (Auto) Nucleated RBCs RBC Morphology Polychromasia Anisocytosis Macrocytosis PT INR APTT ABG pH 7.54 H ABG pCO2 32.0 L ABG pO2 65 L ABG HCO3 27 H ABG Total CO2 28 ABG O2 Saturation 95 ABG Base Excess 5.0 H FiO2 24 Sodium Potassium Chloride Carbon Dioxide BUN Creatinine Estimated GFR BUN/Creatinine Ratio Glucose Lactate 8.4 H* 6.5 H* Calcium Magnesium Total Bilirubin Conjugated Bilirubin Unconjugated Bilirubin AST ALT Alkaline Phosphatase Troponin I Total Protein Albumin Globulin Albumin/Globulin Ratio Nasal Screen MRSA (PCR) Blood Type Antibody Screen Crossmatch 07/02/19 07/02/19 07/02/19 11:15 11:15 11:15 WBC 14.4 H RBC 2.68 L Hgb 8.8 L Hct 24.6 L MCV 92.0 MCH 32.7 MCHC 35.5 RDW 16.8 H Plt Count 43 L Neut % (Auto) 81.3 H Lymph % (Auto) 13.2 L [place] % (Auto) 4.9 Eos % (Auto) 0.0 L Baso % (Auto) 0.6 Neut # (Auto) 89614 H Lymph # (Auto) 1900 [place] # (Auto) 700 Eos # (Auto) 0 Baso # (Auto) 100 Nucleated RBCs RBC Morphology Polychromasia Anisocytosis Macrocytosis PT 50.3 H INR 4.3 H APTT 49 H D ABG pH ABG pCO2 ABG pO2 ABG HCO3 ABG Total CO2 ABG O2 Saturation ABG Base Excess FiO2 Sodium 141 Potassium 5.0 Chloride 104 Carbon Dioxide 29 BUN 61 H Creatinine 2.30 H Estimated GFR 20.8 L BUN/Creatinine Ratio 26.5 H Glucose 63 L Lactate Calcium 6.6 L Magnesium Total Bilirubin Conjugated Bilirubin Unconjugated Bilirubin AST ALT Alkaline Phosphatase Troponin I 0.832 H* Total Protein Albumin Globulin Albumin/Globulin Ratio Nasal Screen MRSA (PCR) Blood Type Antibody Screen Crossmatch 07/02/19 07/02/19 11:15 14:15 WBC RBC Hgb Hct MCV MCH MCHC RDW Plt Count Neut % (Auto) Lymph % (Auto) [place] % (Auto) Eos % (Auto) Baso % (Auto) Neut # (Auto) Lymph # (Auto) [place] # (Auto) Eos # (Auto) Baso # (Auto) Nucleated RBCs RBC Morphology Polychromasia Anisocytosis Macrocytosis PT INR APTT ABG pH ABG pCO2 ABG pO2 ABG HCO3 ABG Total CO2 ABG O2 Saturation ABG Base Excess FiO2 Sodium 141 Potassium 5.2 H Chloride 104 Carbon Dioxide 26 BUN 64 H Creatinine 2.40 H Estimated GFR 19.8 L BUN/Creatinine Ratio 26.7 H Glucose 72 L Lactate Calcium 6.6 L Magnesium Total Bilirubin 4.4 H Conjugated Bilirubin 1.1 H Unconjugated Bilirubin 2.0 H AST 4816 H ALT 623 H Alkaline Phosphatase 48 Troponin I Total Protein 4.0 L Albumin 1.7 L Globulin 2.3 Albumin/Globulin Ratio 0.7 L Nasal Screen MRSA (PCR) Blood Type Antibody Screen Crossmatch Assessment & Plan Assessment & Plan narrative: This is a 73-year-old female with longstanding history of alcoholism who presents to the hospital with acute metabolic encep halopathy, acute Blood Loss Anemia, Acute Renal Failure, Acute Liver Failure, Hepatic Encephalopathy. Patient's metabolic encephalopathy is multifactorial. Had extensive goals of care discussions with family today, and was she is DNR DNI still wish to pursue transfusions in the hope that she will regain enough mental status to communicate with them prior to passing. 1. Metabolic encephalopathy -multifactorial, acute, present on admission - possibly secondary to hepatic encephalopathy, in combination with hypovolemic shock from acute GI bleed. 2. Shock, etiology unclear, patient with a lactate of 22[place] [address], creatinine of 2.4, and acute metabolic encephalopathy. Patient will receive IV fluids, empiric antibiotics with ceftriaxone, in addition to pressors if indicated. Her initial UA is positive. Culture is still pending. -continue ceftriaxone 3. Acute GI bleed, with associated blood loss anemia, suspect lower GI bleed given bright red blood per rectum. However given the patient's history alcoholism there is concern for either peptic ulcer disease, versus variceal bleeding which seems less likely. Patient has been transfused 2 units of blood in the emergency department an additional 2 units blood overnight. Her hemoglobin responded appropriately and repeat today actually shanae. Do not suspect an endoscopy will be done given her INR 4.4. -continue PPI -follow up surgical recommendations 3. Acute liver failure, etiology likely related to ongoing alcoholism in the setting of hypovolemic shock. Patient may have underlying cirrhosis. Her meld score is greater than 30. INR is elevated at 2.4, bilirubin 2.9 and her albumin is very low. Will transfuse, consider NG/rectal tube for lactulose. Patient will be placed on a CIWA protocol anticipating alcohol withdrawal if her mental status improves. 4. Acute renal failure, suspect secondary to septic shock vs.hemorrhagic shock, blood loss anemia and possible bleeding. Her creatinine has stabilized around 2.3, unclear baseline. 5. Metabolic acidosis-suspect secondary to alcoholism, GI bleeding, or park probable septic shock. This is severe initially and patient was placed on bicarbonate. After resuscitation and blood products her metabolic acidosis has improved and she is off bicarbonate. 6. Alcohol dependence, CIWA protocol as above 7. Type 2 myocardial infarction, likely secondary to shock and acute blood loss anemia. Troponin is still up trending at 0.832, cannot initiate medical management at this time given bleeding and will continue to trend troponin until down trending. Dispo: Patient has extremely poor prognosis at this time, if she does not show significant improvement fairly quickly she will likely be referred for hospice. I spent 40 minutes providing critical care management this patient. This excludes time spent in performing separately billed procedures.
--- NOTE | 2019-07-02 15:22 | CM.DPNOTE ---
DCP Cont: Pt discussed in multidisciplinary rounds. Dr Canada expects pt may survive this hospitalization and family would benefit from discussion about DCP options. Pt remains non-responsive. Met w/partner Miguel and sons Lloyd and Romeo in pt's room, had a candid conversation about the limitations of pt's [employer] coverage for end of life management in the SNF setting. Satya will not be available to assist Miguel around the clock if pt returns home and Miguel unable to care for pt on his own. Family unsure there is enough $ available for in home caregiving. Strongly encouraged family to consider respite GROUP HOME stay w/Hospice, all understand that this would be a private cost to pt/family. Provided Senior Resource Guide for review, highlighted [facility] options. This EXCEPTIONAL STUDENT EDUCATION AIDE available to answer questions today as needed. EXCEPTIONAL STUDENT EDUCATION AIDE team will follow closely over next 24-48 hrs to hopefully begin coordination of a safe DCP for pt and family that all can agree upon. ASIA Higginbotham
--- NOTE | 2019-07-02 16:13 | PC.NURSE ---
1545- Son approached RN regarding how to transition patient to comfort care. RN explained the process and called the MD. Waiting for MD to meet with the family.
[2019-07-02] MEDS: MORPHINE 2 MG/ML INJ IV ×2 (16:40→19:48)
[2019-07-02] MEDS: SCOPOLAMINE 1 PATCH TOP (17:13)
--- NOTE | 2019-07-02 17:16 | PM.EVENT ---
Event Note Date Patient Seen: 07/02/19 Time Patient Seen: 16:00 Event Note: I spoke with the family late this evening and updated them on the patient's current status, including her laboratory values have not significantly changed and that her breathing has worsened slightly over the course of the day. After discussion this morning, as well as with current updates, the family has elected to stop antibiotics, labs, fluids for now and proceed with palliation. I informed the family that her passing appears imminent, and that if she is still with us tomorrow we will pursue a hospice evaluation.
--- NOTE | 2019-07-02 20:41 | PM.CHAP ---
Son requested transport engineer visit. He was alone with patient. Prayer and scripture,comfort, conversation re end of life, and difficulty handling mother's . Brother and sister in law arriived later, and felt transport engineer no longer necessary. Younger son very grateful!
--- NOTE | 2019-07-02 21:47 | PC.NURSE ---
2100- Patient remains in a hepatic coma. Respirations are labored. Patient has been medicated x2 with Morphine 2mg to ease work of breathing. Patient is making some urine, it is very concentrate. IVF are infusing at 15cc/hr. Lines have been left in due to elevated INR. Family remains at bedside. Will monitor.
--- NOTE | 2019-07-03 00:09 | PC.NURSE ---
Addendum entered by Kalli Rivas R.N. 07/03/19 01:22: Family at bedside requested pain medicine just in case. Morphine given per orders. Questions answered regarding the process of , support given. Original Note: Pt comfort care status. Sons (Lloyd and Romeo) remain at bedside. They decline any repositioning, suctioning or pain medication for the patient at this time. FLACC 0, pt appears in NAD - unresponsive with [place] like respirations noted intermittently. Will continue to offer support and monitor.
[2019-07-03] MEDS: MORPHINE 2 MG/ML INJ IV ×2 (01:13→10:11)
[2019-07-03 08:45] VITALS: BP 90/32; PULSE 90; RESP 23; TEMP 37.9; O2SAT 87
--- NOTE | 2019-07-03 10:29 | PC.NURSE ---
Addendum entered by Marc Kilpatrick R.N. 07/03/19 11:21: Pt transferred to acute care in bed accompanied by coordinator and nurse. Addendum entered by Marc Kilpatrick R.N. 07/03/19 11:19: Called report to acute care RN. Notified son at bedside of room change. Original Note: 1000- Rounded on pt. D-I-L at bedside. Pt noted to be moaning. Eyes closed. RR labored 26. Family reports intermittent apnea, not observed at this time. Provided oral care. Offered repositioning- family declined at this time. Administered PRN morphine. Will monitor effect.
--- NOTE | 2019-07-03 11:49 | PC.NURSE ---
Addendum entered by Zarina Banks R.N. 07/03/19 13:42: Pt had a necklace in a specimen cup which was given to son Lloyd for safekeeping. No other jewelry present. Pt's family states that if she passes here they have made arrangements with [facility]. Original Note: Pt to room 212 via bed by RN's Alla and Hayden Walters accompanying with all belongings. Pt settled in and hayden Walters seated at the bedside. Pt is unresponsive. Respirations are even and unlabored. Spoke with Hayden Walters for a bit about end of life questions, possible changes to Pt respirations etc. Discussed plan to keep Pt comfortable, mouth moist, skin dry and intact, pain well controlled. Son denies further questions and agrees to call for assistance as needed. Called kitchen to request comfort cart be refreshed. No apparent needs at this time.
--- NOTE | 2019-07-03 12:22 | PM.CHAP ---
Visit w/ son. Prayer & blessing. Son very appreciative. Spoke w/ staff re possible post blessing.
--- NOTE | 2019-07-03 13:03 | P.PN_ITS ---
Subjective Subjective Date Patient Seen: 07/03/19 Time Patient Seen: 07:50 Interval history: Ms. ramos is a 73-year-old female admitted to ICU with a GI bleed, acute liver failure, acute renal failure, and severe metabolic acidosis. Yesterday after discussion with family she was transition to palliative treatments. She appears more comfortable breathing today, but still obtunded. Family was resting in bedside chair morning exam and they had no complaints reg arding her care at this time. Exam Vital Signs (past 8 hours): - 07/03/19 08:45 Temperature 100.3 F H Pulse Rate 90 Respiratory Rate 23 Blood Pressure 90/32 L Pulse Oximetry 87 L Oxygen Delivery Method Room Air Oxygen Flow Rate 0 Narrative Exam Narrative: GENERAL APPEARANCE: Obtunded, breathing comfortably. No spontaneous movements today. SKIN: Inspection of the skin reveals no rashes, ulcerations or petechiae. HEENT: Normal sclera, mild icterus. Mucosa appears moist. NECK: Supple and symmetric. There was no thyroid enlargement, and no tenderness, or masses were felt. CHEST: Normal AP diameter and normal contour without any kyphoscoliosis. LUNGS: Auscultation of the lungs revealed no wheezes, rhonchi, or rales. CARDIOVASCULAR: There was a regular rate and rhythm without any murmurs, gallops, rubs. Peripheral pulses were 2+ and symmetric. ABDOMEN: Soft and non-distended. She is obese and difficult to assess for ascites. MUSCULOSKELETAL: There was no tenderness or effusions noted. Muscle strength and tone were normal. EXTREMITIES: No cyanosis, clubbing or edema. NEUROLOGIC: Obtunded, no spontaneous movements. Objective Labs Result Diagrams: 07/02/19 11:15 07/02/19 14:15 Labs: Laboratory Results - last 24 hr 07/02/19 14:15 Sodium 141 Potassium 5.2 H Chloride 104 Carbon Dioxide 26 BUN 64 H Creatinine 2.40 H Estimated GFR 19.8 L BUN/Creatinine Ratio 26.7 H Glucose 72 L Calcium 6.6 L Assessment & Plan Assessment & Plan narrative: This is a 73-year-old female with longstanding history of alcoholism who presents to the hospital with acute metabolic encephalopathy, acute Blood Loss Anemia, Acute Renal Failure, Acute Liver Failure, Hepatic Encephalopathy. Given her poor prognosis family elected for palliative treatments at this time. 1. Metabolic encephalopathy -multifactorial, acute, present on admission - possibly secondary to hepatic encephalopathy, in combination with hypovolemic shock from acute GI bleed. 2. Shock, etiology unclear but likely hypovolemic from GI hemorrhage but could have been septic, as patient with a lactate of 22[place] [address], creatinine of 2.4, and acute metabolic encephalopathy. Patient received IV fluids, empiric antibiotics with ceftriaxone. Her initial UA is positive and cultures grew E. coli which was polanco-sensitive. She was treated with ceftriaxone but this has been discontinued. Blood cultures were negative. She improved with fluid resuscitation and PRBCs, however there was significant hepatic and renal damage secondary to this. -antibiotics discontinued after discussion with family as above. - no further fluids for hypotension, no further advancements in treatment. 3. Acute GI bleed, with associated blood loss anemia, suspect lower GI bleed given bright red blood per rectum. However given the patient's history alcoho lism there is concern for either peptic ulcer disease, versus variceal bleeding which seems less likely. Patient has been transfused 2 units of blood in the emergency department an additional 2 units blood overnight on HD #1. Her hemoglobin responded appropriately and repeat today actually shanae. Family does not wish for further treatment at this time. - discontinued labs and have withheld further treatments per family's stated wishes. 3. Acute liver failure, etiology likely related to ongoing alcoholism in the setting of hypovolemic shock. Patient may have underlying cirrhosis but no known diagnosis and did not obtain ultrasound prior to goals of care discussion. Her meld score is greater than 30. INR is elevated at 2.4, bilirubin 2.9 and her albumin is very low. 4. Acute renal failure, suspect secondary to septic shock vs.hemorrhagic shock, blood loss anemia and possible bleeding. Her creatinine has stabilized around 2.3, unclear baseline. 5. Metabolic acidosis-suspect secondary to alcoholism, GI bleeding, or park probable septic shock. This is severe initially and patient was placed on bicarbonate. After resuscitation and blood products her metabolic acidosis has improved and she is off bicarbonate. 6. Alcohol dependence, CIWA protocol as above 7. Type 2 myocardial infarction, likely secondary to shock and acute blood loss anemia. Troponin is still up trending at 0.832, cannot initiate medical management at this time given bleeding and will continue to trend troponin until down trending. Dispo: Pending hospice. Palliative care treatments until hospice evaluation. Care management team to help coordinate disposition. Patient's passing appears imminent however given the above morbidities.
[2019-07-03 13:27] VITALS: PULSE 88; O2SAT 87
--- NOTE | 2019-07-03 16:37 | CM.DANOTE ---
Discharge Planning/Care Management CM Discharge Assessment Start: 07/03/19 16:35 Freq: Status: Active Protocol: Document 07/03/19 16:35 KJS (Rec: 07/03/19 16:37 KJS [id number]) Discharge Planning Assessment Assigned Human Resource Advisor ASIA Rudd Contact Information Lloyd Salas # [phone] Advance Directives? No History Provided By Family Member,Medical Record Has Patient been admitted in last 30 No days? Prior Living Arrangements House Household Members none Independent with ADL's No Is patient alert and oriented? No Needs Assistance With Bathing,Eating,Grooming,Meal Prep,Toileting,Managing Medications Caregiver for Another No Discharge Plan Pt expected to in Hospital Referrals Initiated Other Additional Comment Hospice referral made today . Whiteboard Updated in Patient Room with Yes name and ext. # of Human Resource Advisor Review Status In Process Next Review Type Continued Stay Review
--- NOTE | 2019-07-03 16:38 | CM.DPC ---
DCP/continued: Received request from RN to meet with patient's son's today for d/c planning needs. Per RN, it was expected that patient would during hospitalization. However, patient transferred from room#105 to room# 212. Patient currently unresponsive. Met with both son's at bedside Romeo and Lloyd explained CATTLE ALLEY WORKER role. Family requesting Hospice informational visit. Placed call to [facility] requesting that they call son's to arrange visit either today/tomorrow. Clinical faxed to Hospice. In addition, to the above family inquiring about next steps if patient needs to be moved. Family interested in RAL or SJAL with hospice if possible. Family unclear on whether or not patient has funding to cover room/board. However, they will research tonight and let CM team know tomorrow. P: CATTLE ALLEY WORKER to follow up with family in AM re: next steps. Family reports patient cannot go home. They were made aware today that Medicare will cover hospice services but not room/board. Patient's primary [place]. ASIA Rudd
--- NOTE | 2019-07-03 17:49 | CM.MNRNOTE ---
Addendum entered by Nelia Saeed R.N. 07/03/19 22:08: Pt condition remains essentially unchanged. Repositioned throughout evening. RSC IV intact, HANSEL midline intact. Devlin cath patent tea colored urine. Call light w/in reach, bed alarm on for pt safety. Continue w/plan of care. Original Note: Pt non-responsive, family in room. Respirations equal/unlabored. HANSEL midline intact. Right central line intact. Devlin patent tea colored urine. Call light w/in reach, Comfort care measures.
--- NOTE | 2019-07-04 03:11 | PC.NURSE ---
Addendum entered by Anastacio Muñoz R.N. 07/04/19 05:40: Pt denied to D/C taurus, she was concerned about PT and her inability yesterday to get out of bed w/o diziness. IS was encouraged along with deep breathing and coughing. SCD's were on this shift. Original Note: Pt's family is by her side. Pt is being turned and repositioned as needed.
--- NOTE | 2019-07-04 05:42 | PC.NURSE ---
Pt's family is at bedside, Respirations 16. Pt remains unable to respond.
--- NOTE | 2019-07-04 09:18 | CM.DPC ---
Addendum entered by ASIA Mcdaniel 07/04/19 14:56: ADD: Per Hospice SW Iza, family signed Hospice Consents today and are interested in placing pt at a facility with Hospice. SW met bedside with pt's son Lloyd and Brett and they confirm that they are agreeable to Hospice and aware that insurance will not cover room and board. Both still interested in gathering information for [facility], [facility], and [facility]. SW called Rachael at [facility] and requested she call Lloyd and his to provide them with the financial details to determine if they are agreeable. SW called Taylor at [facility] and she confirms that they just had two residents pass away yesterday and could likely secure a Respite bed for the pt at their facility for a $300 move in fee and $300 a day but no up front requirements. Taylor agreeable with family calling her to discuss in more detail. SW [place] [facility] [place] [facility] to determine if they have an opening. SW met bedside with ha Desai and DIL Brett again and they are both surprised at the upfront cost at [facility] and also the cruz for [facility] but they plan to call Taylor next for more details. Plan: SW to follow closely with [facility] in the morning to find out when they can open the pt to service and family's decision about possible facility ([facility] vs [facility] and call back from [facility]) with Hospice vs possible pass here if pt declines overnight. Sherley Gaming, :NON DESTRUCTIVE TESTING SCIENTIST Original Note: DCP Hospice Info Visit SW received a call from Gabby at [facility] stating that CYRIL Couch can be present at the hospital around 1030 this morning to complete a Hospice Info Visit with the family. Per RN, pt still unresponsive. SW met bedside with pt's supportive family friend who states pt's son Romeo was bedside overnight and just left to go home to [place] for some rest but she will contact Romeo's about the Info Visit. CYRIL called pt's other local son Lloyd and discussed time for Info Visit and he states he already spoke to his brother who plans to turn around and come back to the hospital for Info Visit today at 1030. Call from [facility] admissions Rachael who states she spoke to [place] who will not cover a Comfort Care stay and pt would need to pay privately for comfort pathway although a chance that Medicare would then cover the 5 days of comfort pathway but still to be clarified. Plan: SW to follow after Hospice Info Visit at 1030 to determine family's decision on Hospice. SW to follow with [place] to determine if SNF stay was declined then would Medicare cover the 5 days of Comfort. ASIA Mcdaniel
--- NOTE | 2019-07-04 09:47 | PC.NURSE ---
Day shift: Pt turned to rt side laying w/ AIRFRAME AND POWERPLANT MECHANIC Nilay. Pt resting w/ no s/s of pain or discomfort. Friend at bedside for support. Will ask MD if Pt needs SCd's at this time as they are ordered but not applied. This database report writer and AIRFRAME AND POWERPLANT MECHANIC will check on Pt Q 30 minutes. Family has been requested to let nursing know if Pt displays any s/s of pain or discomfort. Hospice consult with family at 1030. BEd alarm on. Call light in reach.
--- NOTE | 2019-07-04 12:09 | P.PN_ITS ---
Subjective Subjective Date Patient Seen: 07/04/19 Time Patient Seen: 08:30 Interval history: Ms. ramos is a 73-year-old female admitted to ICU with a GI bleed, acute liver failure, acute renal failure, and severe metabolic acidosis. She was transitioned to palliative treatments. She appears more comfortable breathing today, but still obtunded. Family was resting in bedside chair morning exam and they had no complaints regarding her care at this time. Pending hospice meeting this morning. Exam Vital Signs (past 8 hours): Oxygen Delivery Method Room Air Oxygen Flow Rate 0 Narrative Exam Narrative: Exam Narrative: GENERAL APPEARANCE: Obtunded, breathing comfortably. No spontaneous movements today. SKIN: Inspection of the skin reveals no rashes, ulcerations or petechiae. HEENT: Normal sclera, mild icterus. Mucosa appears moist. NECK: Supple and symmetric. There was no thyroid enlargement, and no tenderness, or masses were felt. CHEST: Normal AP diameter and normal contour without any kyphoscoliosis. LUNGS: Auscultation of the lungs revealed no wheezes, rhonchi, or rales. CARDIOVASCULAR: There was a regular rate and rhythm without any murmurs, gallops, rubs. Peripheral pulses were 2+ and symmetric. ABDOMEN: Soft and non-distended. She is obese and difficult to assess for ascites. MUSCULOSKELETAL: There was no tenderness or effusions noted. Muscle strength and tone were normal. EXTREMITIES: No cyanosis, clubbing or edema. NEUROLOGIC: Obtunded, no spontaneous movements. Pupils are equally round and reactive. Objective Labs Result Diagrams: 07/02/19 11:15 07/02/19 14:15 Assessment & Plan Assessment & Plan narrative: This is a 73-year-old female with longstanding history of alcoholism who presents to the hospital with acute metabolic encephalopathy, acute Blood Loss Anemia, Acute Renal Failure, Acute Liver Failure, Hepatic Encephalopathy. Given her poor prognosis family elected for palliative treatments at this time. 1. Metabolic encephalopathy -multifactorial, acute, present on admission - possibly secondary to hepatic encephalopathy, in combination with hypovolemic shock from acute GI bleed. - patient remains obtunded, given goals of care family wishes for no further treatments. 2. Shock, etiology unclear but likely hypovolemic from GI hemorrhage but could have been septic, as patient with a lactate of 22[place] [address], creatinine of 2.4, and acute metabolic encephalopathy. Patient received IV fluids, empiric antibiotics with ceftriaxone. Her initial UA is positive and cultures grew E. coli which was polanco-sensitive. She was treated with ceftriaxone but this has been discontinued. Blood cultures were negative. She improved with fluid resuscitation and PRBCs, however there was significant hepatic and renal damage secondary to this. -antibiotics discontinued after discussion with family as above. - no further fluids for hypotension, no further advancements in treatment. 3. Acute GI bleed, with associated blood loss anemia, suspect lower GI bleed giv en bright red blood per rectum. However given the patient's history alcoholism there is concern for either peptic ulcer disease, versus variceal bleeding which seems less likely. Patient has been transfused 2 units of blood in the emergency department an additional 2 units blood overnight on HD #1. Her hemoglobin responded appropriately and repeat today actually shanae. Family does not wish for further treatment at this time. - discontinued labs and have withheld further treatments per family's stated wishes. 4. Acute liver failure, etiology likely related to ongoing alcoholism in the s etting of hypovolemic shock. Patient may have underlying cirrhosis but no known diagnosis and did not obtain ultrasound prior to goals of care discussion. Her meld score is greater than 30. INR is elevated at 2.4, bilirubin 2.9 and her albumin is very low. 5. Acute renal failure, suspect secondary to septic shock vs.hemorrhagic shock, blood loss anemia and possible bleeding. Her creatinine had stabilized around 2.3, unclear baseline. 6. Metabolic acidosis-suspect secondary to alcoholism, GI bleeding, or park probable septic shock. This is severe initially and patient was placed on bicar bonate. After resuscitation and blood products her metabolic acidosis has improved and she is off bicarbonate. 7. Alcohol dependence. 8. Type 2 myocardial infarction, likely secondary to shock and acute blood loss anemia. Troponin was still up trending at 0.832, could not initiate medical management at that time given bleeding. stopped trending due to goals of care. Dispo: Pending hospice. Palliative care treatments until hospice evaluation. Care management team to help coordinate disposition. Patient's passing appears imminent however given the above morbidities.
--- NOTE | 2019-07-04 12:46 | PC.NURSE ---
Day shift: Pt checked per family request for BM. Checked by CNAs and no BM present. Claus remains patent. Family at bedside.
--- NOTE | 2019-07-04 12:54 | PM.CHAP ---
Lengthly visit w/ son and sister in law. Discussion re process, worries re need to move pt if does not occur soon. Prayer and reassurance.
[2019-07-04 15:15] VITALS: BP 44/27; PULSE 78; RESP 15; TEMP 36.5
--- NOTE | 2019-07-04 18:12 | PC.NURSE ---
Addendum entered by Nelia Saeed R.N. 07/04/19 22:31: Pt med @ 2100 for apparent discomfort. FLACC = 3 w/ good relief. Condition remains essentially unchanged. Family in room. Continue w/plan of care. Original Note: Pt unresponsive. Family in room. HL HANSEL midline and SC cath on Right intact. Devlin cath patent tea colored urine. Condition remains essentially unchanged.
[2019-07-04] MEDS: MORPHINE 2 MG/ML INJ IV (20:56)
[2019-07-05] MEDS: MORPHINE 2 MG/ML INJ IV ×3 (06:29→22:02)
[2019-07-05 09:00] VITALS: BMI 34.9
--- NOTE | 2019-07-05 12:15 | PM.CHAP ---
Visit w/ son, Romeo. Pt is restless. Son worried re move to [facility] home vs home. Money is an issue. Reassured. Prayer & blessing.
--- NOTE | 2019-07-05 13:21 | PC.NURSE ---
Day shift: Pt lying in bed w/ no s/s of pain or discomfort. Does not respond to voice. Respirations shallow at approx 20 per minute. Lungs do not sound moist or wet. Talked with family for approx 10 minutes. No intervention done at this time. SO and older son in room for support. Plan is for SNF with hospice but not likely to happen today.
--- NOTE | 2019-07-05 15:20 | P.PN_ITS ---
Subjective Subjective Date Patient Seen: 07/05/19 Time Patient Seen: 15:20 Interval history: Ms. ramos is a 73-year-old female admitted to ICU with a GI bleed, acute liver failure, acute renal failure, and severe metabolic acidosis. She was transitioned to palliative treatments. She appears more comfortable breathing today, but still obtunded. Family was resting in bedside chair morning exam and they had no complaints regarding her care at this time. Pending hospice at this time. Exam Vital Signs (past 8 hours): Oxygen Delivery Method Room Air Oxygen Flow Rate 0 Narrative Exam Narrative: Exam Narrative: GENERAL APPEARANCE: Obtunded, breathing comfortably. No spontaneous movements today. SKIN: Inspection of the skin reveals no rashes, ulcerations or petechiae. HEENT: Normal sclera, mild icterus. Mucosa appears dry. NECK: Supple and symmetric. There was no thyroid enlargement, and no tenderness, or masses were felt. CHEST: Normal AP diameter and normal contour without any kyphoscoliosis. LUNGS: Auscultation of the lungs revealed no wheezes, rhonchi, or rales. CARDIOVASCULAR: There was a regular rate and rhythm without any murmurs, gallops, rubs. Peripheral pulses were 2+ and symmetric. ABDOMEN: Soft and non-distended. She is obese and difficult to assess for ascites. MUSCULOSKELETAL: There was no tenderness or effusions noted. Muscle strength and tone were normal. EXTREMITIES: No cyanosis, clubbing or edema. NEUROLOGIC: Obtunded, no spontaneous movements. Pupils are equally round and shirley ctive. Objective Labs Result Diagrams: 07/02/19 11:15 07/02/19 14:15 Labs: Laboratory Results - last 24 hr 07/01/19 09:00 Crossmatch See Detail Assessment & Plan Assessment & Plan narrative: This is a 73-year-old female with longstanding history of alcoholism who presents to the hospital with acute metabolic encephalopathy, acute Blood Loss Anemia, Acute Renal Failure, Acute Liver Failure, Hepatic Encephalopathy. Given her poor prognosis family elected for palliative treatments at this time. 1. Metabolic encephalopathy -multifactorial, acute, present on admission - possibly secondary to hepatic encephalopathy, in combination with hypovolemic shock from acute GI bleed. - patient remains obtunded, given goals of care family wishes for no further treatments. 2. Shock, etiology unclear but likely hypovolemic from GI hemorrhage but could have been septic, as patient with a lactate of 22[place] [address], crea tinine of 2.4, and acute metabolic encephalopathy. Patient received IV fluids, empiric antibiotics with ceftriaxone. Her initial UA is positive and cultures grew E. coli which was polanco-sensitive. She was treated with ceftriaxone but this has been discontinued. Blood cultures were negative. She improved with fluid resuscitation and PRBCs, however there was significant hepatic and renal damage secondary to this. -antibiotics discontinued after discussion with family as above. - no further fluids for hypotension, no further advancements in treatment. 3. Acute GI bleed, with associated blood loss anemia, suspect lower GI bleed given bright red blood per rectum. However given the patient's history alcoholism there is concern for either peptic ulcer disease, versus variceal bleeding which seems less likely. Patient has been transfused 2 units of blood in the emergency department an additional 2 units blood overnight on HD #1. Her hemoglobin responded appropriately and repeat today actually shanae. Family does not wish for further treatment at this time. - discontinued labs and have withheld further treatments per family's stated wishes. 4. Acute liver failure, etiology likely related to ongoing alcoholism in the setting of hypovolemic shock. Patient may have underlying cirrhosis but no known diagnosis and did not obtain ultrasound prior to goals of care discussion. Her meld score is greater than 30. INR is elevated at 2.4, bilirubin 2.9 and her albumin is very low. 5. Acute renal failure, suspect secondary to septic shock vs.hemorrhagic shock, blood loss anemia and possible bleeding. Her creatinine had stabilized around 2.3, unclear baseline. 6. Metabolic acidosis-suspect secondary to alcoholism, GI bleeding, or park probable septic shock. This is severe initially and patient was placed on bicarbonate. After resuscitation and blood products her metabolic acidosis has improved and she is off bicarbonate. 7. Alcohol dependence. 8. Type 2 myocardial infarction, likely secondary to shock and acute blood loss anemia. Troponin was still up trending at 0.832, could not initiate medical management at that time given bleeding. stopped trending due to goals of care. Dispo: Pending hospice. Palliative care treatments until hospice evaluation. Care management team to help coordinate disposition. Patient's passing appears to be imminent, but it is difficult to tell.
--- NOTE | 2019-07-05 16:30 | CM.DPC ---
DCP/continued: Reviewed chart. Per Dr. Canada patient is medically stable to discharge either home or facility with hospice. Received call from [place] at [facility] today indicating that patient remains covered under medical insurance until 11:59PM today. Met with patient and son's Romeo and Lloyd. Family now report that they would like patient to return home with hospice. Placed call to Mariam at [facility] and she reports first visit scheduled for Friday07-07-19 at either home or facility. Initially, it was thought that family wanted patient to go to either [facility] or [facility] with hospice. Family determined change in initial plan late this afternoon. Left VM with Mariam requesting hospital bed be delivered to residence in AM tomorrow 07-06-19. Family in agreement for patient to come home in afternoon tomorrow. P: 1)Home with hospice tomorrow afternoon. 2)[facility] if family changes mind with hospice. They do have bed. ASIA Rudd
--- NOTE | 2019-07-05 22:36 | PC.NURSE ---
[id number] Report received, care assumed. End-of-life care only. Pt's eyes slightly open, mouth open, unresponsive. Comfortable at time of initial assessment, family at bedside. Discussed POC and expectations. Also discussed POC with case loader operator at bedside. Throughout shift, intermittently restless in bed, moaning quietly. Treated with morphine, appropriate response achieved. Eyes goopy, washed. Oral care provided.
--- NOTE | 2019-07-06 10:42 | PC.NURSE ---
Day shift: Pt has approx 4oz size loose BM at this time. QUARTER SEAMER changed brief and called this sql report writer as there is mild skin breakdown at [place] area as well as left calf. Son informed of BM and that possibly indicates Pt is closer to passimg. Plan is for 1400 transport BLS to home w/ hospice.
[2019-07-06] MEDS: LORazepam 2 MG/ML INJ 1 MG IV (11:42)
--- NOTE | 2019-07-06 12:43 | PC.NURSE ---
Day shift: Pt left unit via WC w/ this content writer to car driven by Pt's daughter. scrips faxed to pharmacy. Paperwork signed and all questions answered. Pt has all personal belongings.
--- NOTE | 2019-07-06 14:13 | PC.NURSE ---
Day shift: Pt left unit at approx 1415 to home hospice. Family informed about med use. Paperwork signed and all questions answered. Pt has all personal belongings. Pt going home BLS. Family has POLST form.
--- NOTE | 2019-07-06 15:09 | CM.DPC ---
DCP/continued: Reviewed chart. Spoke with Dr. Canada and he confirms that patient okay to d/c home today with hospice. Placed call to Mariam at [facility] re: first hospice visit at patient's residence. Mariam confirms that first visit will take placed tomorrow 07-07-19 at 10:00AM. Met with family and they are in agreement to take patient home today with hospice opening tomorrow. Prescriptions obtained and filled at [facility]. Hospital bed delivered this AM to patient's residence. Family plans to be with patient 05/05. POLST form completed. Placed call to [facility] transport and set up non-urgent BLS transport for 2:00pm today. Non-urgent BLS non-urgent medical need form signed by ASIA and . RN updated on plan. Family aware that patient may during transport or before patient seen by hospice tomorrow. They understand. Letter obtained today from [facility] denying stay as of 07-05-19. Left vm with CM at [facility] indicating that patient discharged from [facility] today. P: Home today via non-urgent BLS. [facility] scheduled to see patient in the residence in AM tomorrow. ASIA Rudd
--- NOTE | 2019-07-06 15:50 | P.DS_ITS ---
History of Present Illness History of Present Illness Date Patient Seen: 07/06/19 Time Patient Seen: 12:10 Chief complaint: Weakness, hypoglycemia Narrative: As per Una Antonio MD, Patient is a 73-year-old female with a longstanding history of alcoholism who was brought in by medics as she was found down. According to the history obtained by the ER provider the patient has been drinking daily. She over the past week has essentially been in the bed and unable to get up and ambulate. She was found by her significant other down on the ground today. 911 was: And the patient was found to be hypoglycemic with a blood sugar of 46. She was given glucagon but no improvement. Upon arrival to the emergency room the patient was confused, found to be anemic with hemoglobin of 4.9 and hematocrit of 14, had evidence of liver failure with elevated LFTs, acute renal failure with an elevated creatinine of 2.8, elevated protime 2.5 bilirubin of 2.9, chest x-ray which was negative, a head CT which was negative. Patient is currently unresponsive. Her eyes are open but she does not verbalize any words. Patient is found to be markedly markedly acidotic. It her pH is 6.91, pCO2 of 19.4, CO2 of 7. Patient has a elevated lactate of 22.4. Patient's ammonia level was over 200. She is admitted to the hospital critically ill with a acute GI bleed, acute liver failure, acute renal failure, severe metabolic acidosis. Her sons are at the bedside. They do not know her code status. Patient will be full code at this time. Discharge Providers Provider Date of admission: 07/01/19 13:37 Discharge Date: 07/06/19 Consults: 07/01/19 15:45 Consult to Dietitian, Adult Routine Comment: Reason For Exam: alcoholic Discharge provider: Rory Canada DO Summary Hospital Course Discharge Diagnosis: 1. Metabolic encephalopathy, multifactorial, acute, present on admission 2. Shock, etiology unclear 3. Acute GI bleed, with associated acute blood loss anemia 4. Acute liver failure 5. Acute renal failure. 6. Metabolic acidosis 7. Alcohol dependence. 8. Type 2 myocardial infarction Hospital Course: This is a 73-year-old female with longstanding history of alcoholism who presents to the hospital with acute metabolic encephalopathy, acute Blood Loss Anemia, Acute Renal Failure, Acute Liver Failure, Hepatic Encephalopathy. Given her poor prognosis family elected for palliative treatments at this time. 1. Metabolic encephalopathy -multifactorial, acute, present on admission - possibly secondary to hepatic encephalopathy, in combination with hypovolemic shock from acute GI bleed. - patient remains obtunded, given goals of care family wishes for no further treatments. 2. Shock, etiology unclear but likely hypovolemic from GI hemorrhage but could have been septic, as patient with a lactate of 22[place] [address], creatinine of 2.4, and acute metabolic encephalopathy. Patient received IV fluids, empiric antibiotics with ceftriaxone. Her initial UA is positive and cultures grew E. coli which was polanco-sensitive. She was treated with ceftriaxone but this has been discontinued. Blood cultures were negative. She improved with fluid resuscitation and PRBCs, however there was significant hepatic and renal damage secondary to this. -antibiotics discontinued after discussion with family as above. -no further fluids for hypotension, no further advancements in treatment. 3. Acute GI bleed, with associated blood loss anemia, suspect lower GI bleed given bright red blood per rectum. However given the patient's history alcoholism there is concern for either peptic ulcer disease, versus variceal bleeding which seems less likely. Patient has been transfused 2 units of blood in the emergency department an additional 2 units blood overnight on HD #1. Her hemoglobin responded appropriately and repeat today actually shanae. Family does not wish for further treatment at this time. - discontinued labs and have withheld further treatments per family's stated wishes. 4. Acute liver failure, etiology likely related to ongoing alcoholism in the setting of hypovolemic shock. Patient may have underlying cirrhosis but no known diagnosis and did not obtain ultrasound prior to goals of care discussion. Her meld score is greater than 30. INR is elevated at 2.4, bilirubin 2.9 and her albumin is very low. 5. Acute renal failure, suspect secondary to septic shock vs.hemorrhagic shock, blood loss anemia and possible bleeding. Her creatinine had stabilized around 2.3, unclear baseline. 6. Metabolic acidosis-suspect secondary to alcoholism, GI bleeding, or park probable septic shock. This is severe initially and patient was placed on bicarbonate. After resuscitation and blood products her metabolic acidosis has improved and she is off bicarbonate. 7. Alcohol dependence. 8. Type 2 myocardial infarction, likely secondary to shock and acute blood loss anemia. Troponin was still up trending at 0.832, could not initiate medical management at that time given bleeding. stopped trending due to goals of care. Dispo: Patient's passing appears to be imminent. Patient was discharged home with hospice. They were provided with prescriptions for comfort medications. Time Spent with Patient Time spent: Greater than 30 minutes Exam Vital Signs (past 8 hours): Oxygen Delivery Method Room Air Oxygen Flow Rate 0 Narrative Exam Narrative: GENERAL APPEARANCE: Obtunded, agonal breathing. No spontaneous movements today. SKIN: Inspection of the skin reveals no rashes, ulcerations or petechiae. HEENT: Normal sclera, icterus present. Mucosa appears dry. NECK: Supple and symmetric. There was no thyroid enlargement, and no tenderness, or masses were felt. CHEST: Normal AP diameter and normal contour without any kyphoscoliosis. LUNGS: Auscultation of the lungs revealed no wheezes, rhonchi, or rales. CARDIOVASCULAR: There was a regular rate and rhythm without any murmurs, gallops, rubs. Peripheral pulses were 2+ and symmetric. ABDOMEN: Soft and non-distended. She is obese and difficult to assess for ascites. MUSCULOSKELETAL: There was no tenderness or effusions noted. Muscle strength and tone were normal. EXTREMITIES: No cyanosis, clubbing or edema. NEUROLOGIC: Obtunded, no spontaneous movements. Pupils are mildly dilated and minimally reactive. Objective Labs Result Diagrams: 07/02/19 11:15 07/02/19 14:15 Discharge Plan Discharge Plan Patient Disposition: Hospice - Home Discharge comment: You are being discharged home with hospice. All medications were prescribed to ensure proper comfort. Discharge Med Rec/Prescriptions Prescriptions: New atropine 1 % Drops 2 drops PO Q2HR PRN (Reason: Secretions) 7 Days Qty: 5 RF: 0 scopolamine base [Transderm-Scop] 1 mg over 3 days Patch 3 Day 1 patch topical Q72H PRN (Reason: Secretions) 12 Days Qty: 4 RF: 0 polyvinyl alcohol [Artificial Tears (polyvin alc)] 1.4 % Drops 1 drops EYE-BOTH Q2HR PRN (Reason: Dry Eye(S)) 7 Days Qty: 15 RF: 0 lorazepam [Lorazepam Intensol] 2 mg/mL concentrate 0.5 mg PO Q6H PRN (Reason: agitation) 7 Days Qty: 30 RF: 0 morphine concentrate 100 mg/5 mL (20 mg/mL) solution 5 mg PO Q6H PRN (Reason: dyspnea) 7 Days Qty: 30 RF: 0 No Action No Known Home Medications RF: 0 Provider Discharge Instructions Diet: Feed on demand Visit Report/Discharge Packet Instructions: Lorazepam, Morphine, Atropine Ophthalmic, Scopolamine Transdermal Patch Discharges patient from system. Discharge Date/Time: 07/06/19 14:15
== END 2019-07-06 14:15 | disposition hospice, home (50) | DRG 441 ==
LOC: ED 13:37 → AC 13:38 → ICU 14:22 → AC 07-03 11:27
PROVIDERS: Internal Medicine; Nurse Practitioner Adult Health; Specialist; Admitting Provider Internal Medicine; Emergency Provider Emergency Medicine; Visit Provider Internal Medicine
DX: K72.01 Acute and subacute hepatic failure with coma (principal); G93.41 Metabolic encephalopathy; R57.1 Hypovolemic shock; I21.A1 Myocardial infarction type 2; N17.9 Acute kidney failure, unspecified; D62 Acute posthemorrhagic anemia; K92.2 Gastrointestinal hemorrhage, unspecified; E87.2 Acidosis; E16.2 Hypoglycemia, unspecified; F10.20 Alcohol dependence, uncomplicated; F17.210 Nicotine dependence, cigarettes, uncomplicated
CPT/HCPCS: 36430; 36591; 36592; 36600; 51701; 70450; 71045; 80048; 80053; 80076; 80305; 80320; 81001; 82140; 82272; 82550; 82553; 82805; 82962; 83605; 83690; 83735; 84484; 85014; 85018; 85025; 85610; 85730; 86850; 86900; 86901; 87040; 87077; 87086; 87186; 87797; 93005; 93041; 94760; 96361; 96374; 99285; 99291; 99292; P9016; C9113; J0610; J0696; J2060; J2270